=== PATIENT | male | born 1950 | race Caucasian/White ===

== ENCOUNTER 2019-04-28 09:38 | Inpatient (IN) ==
--- NOTE | 2019-04-14 16:40 | PAT Medication Instructions ---
Medication Instructions Date of Service April 14, 2019 Home Medications Medication Instructions Recorded oxycodone-acetaminophen 1 tab PO Q6H PRN #20 tab 06/25/18 Eliquis 5 mg PO BID ascorbic acid (vitamin C) [Vitamin C] 500 mg PO BID atorvastatin 40 mg PO HS levothyroxine 100 mcg PO QAM metformin 1,000 mg PO BID metoprolol succinate 0.5 tab PO BID omeprazole 10 mg PO DAILY PRN oxycodone-acetaminophen 1 tab PO Q6H PRN clopidogrel 75 mg PO QAM colestipol 1 g PO QPM furosemide 40 mg PO QAM ipratropium bromide 2 spray INTRANASAL TID magnesium 400 mg PO BID olopatadine 1 drp OPHTHALMIC (EYE) BID pantoprazole 20 mg PO QAM sacubitril-valsartan [Entresto] 1 tab PO BID spironolactone 25 mg PO QAM sulfamethoxazole-trimethoprim 1 tab PO Q12H PRN ASK your surgeon for instructions sulfamethoxazole-trimethoprim 1 tab PO Q12H PRN ASK your prescriber and surgeon Eliquis 5 mg PO BID clopidogrel 75 mg PO QAM STOP taking 48 hours before surgery colestipol 1 g PO QPM DO NOT take the morning of surgery ascorbic acid (vitamin C) [Vitamin C] 500 mg PO BID metformin 1,000 mg PO BID furosemide 40 mg PO QAM magnesium 400 mg PO BID sacubitril-valsartan [Entresto] 1 tab PO BID spironolactone 25 mg PO QAM Take morning of surgery With a small sip of water, OTHERWISE NOTHING TO EAT OR DRINK AFTER MIDNIGHT: levothyroxine 100 mcg PO QAM metoprolol succinate 0.5 tab PO BID omeprazole 10 mg PO DAILY PRN (if needed) oxycodone-acetaminophen 1 tab PO Q6H PRN (okay to take up to 4 hours prior to surgery if needed) ipratropium bromide 2 spray INTRANASAL TID olopatadine 1 drp OPHTHALMIC (EYE) BID pantoprazole 20 mg PO QAM Take evening before surgery ascorbic acid (vitamin C) [Vitamin C] 500 mg PO BID atorvastatin 40 mg PO HS metformin 1,000 mg PO BID metoprolol succinate 0.5 tab PO BID oxycodone-acetaminophen 1 tab PO Q6H PRN (if needed) ipratropium bromide 2 spray INTRANASAL TID magnesium 400 mg PO BID olopatadine 1 drp OPHTHALMIC (EYE) BID sacubitril-valsartan [Entresto] 1 tab PO BID Other Notes If you have any questions please call us at [phone] or [phone] or [phone] or [phone]
--- NOTE | 2019-04-15 14:03 | Anesthesiology Consultation ---
Date of Service April 15, 2019 Assessment & Plan (1) Encounter for pre-operative examination: - Eroded penile prosthesis: reason for upcoming procedure. Per surgeon "will need surgical correction." - Cardiology: 04/07/19: S/P PCI with LIZ to mid LAD (08/27/2018)- patent per 01/2019 repeat cardiac cath; per cardiac cath report. Patient subsequently had abnormal stress test (12/2018). Patient then had cardiac cath noting patent stent/graft/normal bioprosthetic AV. "cleared from a cardiac standpoint for the upcoming procedure." Eliquis to hold 2 days prior to surgery, Plavix to hold 7 days prior to surgery per cardiology. Per cardiology, do not need to start ASA while Eliquis/Plavix on hold. Discussed with hugo Becerra to proceed with given procedure as scheduled.* - Check BSG AM DOS Chart Review Chart Review: Acceptable Risk for Surgery (pending evaluation of clinical status AM DOS) and Patient seen in Pre Admission Testing Teaching & Discussion Pre-Anesthesia Teaching/Discussion Notes: Instructed NPO after midnight before surgery,except medications with 15 cc of water. Medication instructions provided according to the PAT guidelines. History Surgery Operation Date: 05/03/19 13:10 Proposed Procedures p Partial Cystectomy, - Ruiz Luu MD s Revision of Penile Prosthesis - Ruiz Luu MD Height/Weight Height: 5 ft 7 in Weight: 93 kg Allergies Allergy/AdvReac Type Severity Reaction Status Date / Time cefadroxil [From Duricef] Allergy Unknown lips Verified 04/19/19 14:13 swelling Medications Home Medications Medication Instructions Recorded Confirmed Last Taken Eliquis 5 mg PO BID 06/02/18 04/19/19 06/20/18 19:00 ascorbic acid (vitamin C) [Vitamin 500 mg PO BID 06/02/18 04/19/19 06/23/18 18:30 C] atorvastatin 40 mg PO HS 06/02/18 04/19/19 06/23/18 18:30 levothyroxine 100 mcg PO QAM 06/02/18 04/19/19 06/24/18 06:30 metformin 1,000 mg PO BID 06/02/18 04/19/19 06/23/18 20:00 metoprolol succinate 0.5 tab PO BID 06/02/18 04/19/19 06/24/18 07:00 omeprazole 10 mg PO DAILY PRN 06/02/18 04/19/19 06/23/18 18:30 oxycodone-acetaminophen 1 tab PO Q6H PRN #20 tab 06/25/18 04/19/19 Unknown clopidogrel 75 mg PO QAM 04/06/19 04/19/19 Unknown colestipol 1 g PO QPM 04/13/19 04/19/19 Unknown furosemide 40 mg PO QAM 04/13/19 04/19/19 Unknown ipratropium bromide 2 spray INTRANASAL TID 04/13/19 04/19/19 Unknown magnesium 400 mg PO BID 04/13/19 04/19/19 Unknown olopatadine 1 drp OPHTHALMIC (EYE) BID 04/13/19 04/19/19 Unknown pantoprazole 20 mg PO QAM 04/13/19 04/19/19 Unknown sacubitril-valsartan [Entresto] 1 tab PO BID 04/13/19 04/19/19 Unknown spironolactone 25 mg PO QAM 04/13/19 04/19/19 Unknown doxycycline monohydrate 100 mg 100 mg PO BID #60 cap 04/19/19 04/19/19 Unknown capsule tramadol 50 mg tablet 50 mg PO TID PRN #20 tab 04/20/19 Unknown Past Medical History Medical History Abdominal bloating per patient, reason on PPI Anemia hgb stable in the 9-10 range in setting of hematuria Atrial fibrillation paroxysmal s/p watchman ANDRE closure procedure (04/01/2019) CAD (coronary artery disease) PCI with LIZ to mid LAD (08/27/2018)- patent per 01/2019 repeat cardiac cath; per cardiac cath report, hx SVG to RCA graft (remotely placed per cardiology records; patient denies hx of bypass graft at PAT visit) Diabetes mellitus, type 2 Dry eye syndrome GERD (gastroesophageal reflux disease) rare with food triggers Hematuria History of aortic valve disease s/p AVR (2009) History of blood transfusion S/P colon resection History of skin cancer Hx of nasal polyp Hx of sleep apnea per patient, retesting showed patient no longer needs device Hypertension Hyponatremia mild, chronic in the low 130's Hypothyroid PAD (peripheral artery disease) S/P right SFA stent/left TPT (tibial peroneal) stent (2015) Exercise / Class Metabolic Activity III < 4 Walking/Shop/Light housework Past Family History Family History Father Family history of diabetes mellitus Brother Family history of diabetes mellitus Past Surgical History Surgical History H/O removal of cyst LEG History of appendectomy 01/14/15= OPEN APPE= GRADE VIEW 3, LUU 4 ETT 7.5 AT [facility] History of cardiac radiofrequency ablation 09/2018 History of cardioversion 08/2018 History of colon resection 09/18 PERFORATION (WITH FOREIGN BODY PER RECORDS OBTAINED) History of colostomy reversal History of penile implant History of procedure for peripheral vascular disease S/P RIGHT SFA STENT/LEFT TPT (TIBIAL PERONEAL) STENT (2015) Hx of aortic valve replacement 2009 Hx of cardiac cath = no stents; 08/27/18 LIZ to mid LAD; repeat cardiac cath 01/2019 with patent stent, 04/01/2019 had watchman procedure Hx of colonoscopy Hx of colostomy SUBSEQUENT REVERSAL Hx of endoscopy Past Anesthesia History No Hx of Anesthesia Complications and No Family Hx of Anesthesia Complications History of PONV No Hx of PONV and Hx of Motion Sickness (rare (boat rides)) Social History Smoking Status: Former smoker tobacco type: smokeless tobacco Do You Dip or Chew Tobacco: No Smoking End Date: QUIT 2011 Hx Alcohol Use: No Alcohol Intake Frequency Comment: STOPPED 2011 Hx Substance Use: No substance use type: does not use Review of Systems Rare reflux. Patient denies chest pain, shortness of breath, cough, wheezing, palpitations. Physical Exam Vital Signs VITALS BP 105/68 P 81 TEMP 98.2 SP02 100%RA RESP 20 PHYSICAL Full neck and c-spine range of motion. Full TMJ range of motion. TMD 3.5 finger breaths Mallampati Score 3 Dentition: missing molar Lungs: clear throughout to auscultation Cardiac: regular rate, irregular rhythm, no murmurs noted Spine: normal Carotid arteries: negative bruit Extremities: no edema Testing Laboratory Results 04/15/19 14:30 04/15/19 14:30 Urine Color Perrin 04/15/19 Unknown Urine Appearance Cloudy (Clear) A 04/15/19 Unknown Urine pH 5.5 (4.5-7.5) 04/15/19 Unknown Ur Specific [place] 1.021 (1.000-1.030) 04/15/19 Unknown Urine Protein 2+ (Negative) H 04/15/19 Unknown Urine Glucose (UA) Negative (Negative) 04/15/19 Unknown Urine Ketones Negative (Negative) 04/15/19 Unknown Urine Nitrite Negative (Negative) 04/15/19 Unknown Ur Leukocyte Esterase 3+ (Negative) H 04/15/19 Unknown Urine WBC (Auto) >30 /hpf (0-5) H 04/15/19 Unknown Urine RBC (Auto) >30 /hpf (0-4) H 04/15/19 Unknown U Hyaline Cast (Auto) 10-30 /lpf (0-5) H 04/15/19 Unknown U Epithel Cells (Auto) 5-10 /lpf (0-5) H 04/15/19 Unknown Urine Bacteria (Auto) Negative (Negative) 04/15/19 Unknown Blood Type B Positive 04/15/19 14:30 Antibody Screen NEGATIVE 04/15/19 14:30 04/15/19 Unknown Urine Culture - Final Urine,Clean Catch No growth - less than 1,000 colonies/mL. *Elevated creatinine from baseline in setting of inflammatory bladder changes/mass effect from penile implant/eroded penile prosthesis (reason for upcoming procedure). Surgeon made aware of elevated creatinine as well as WBC.* Electrocardiogram Date: 02/11/19 A. fib at 99bpm. NS STA/TWA. Chest X-Ray Date: 04/15/19 Prior median sternotomy. Lungs are clear. Echocardiogram Date: 02/04/19 LVEF 40-45%. Lipomatous atrial septal hypertrophy. Bioprosthetic valve in aortic position (valve function acceptable). Mild MR/TR. No thrombus in the ANDRE. Stress Test Date: 12/15/18 Type: nuclear LVEF 43%. Non-diagnostic stress EKG. 49% MPHR. Abnormal SPECT myocardial perfusion study with moderate area of moderate anterolateral ischemia.* Mild lateral HK. Cardiac Catheterization Date: 02/04/19 Cardiac cath: 02/04/19: Chronic total occlusion of RCA. Patent vein graft to RPDA. Patent proximal LAD artery stent. Bioprosthetic AV with normal function/no gradient. Mild ischemic cardiomyopathy. Cardiac cath: 08/27/18: Two vessel CAD of the LAD and RCA. Patent SVG to RCA. PCI with LIZ of the mid LAD. PCI with LIZ of the mid LAD. Other Testing Chest CT: 09/2018: Ascending aorta ectatic measuring 4.4cm. Extensive coronary artery calcification. Mild b/l hilar adenopathy or mediastinal adenopathy of uncertain significance. Suggestive bronchitis. Cholelithiasis. CT abdomen/pelvix: 04/15/19: Inflammatory changes along the anterior bladder and extending into the right inguinal canal. The penile implant has an asymmetric appearance with a reservoir exerting mass effect on the urinary bladder and asymmetry of the inguinal components. The right inguinal component does not appear to be in continuity with the reservoir and does not extend in the similar fashion into the inguinal canal as on the left. Correlate with the expected appearance. Surrounding inflammatory changes could represent exuberant granulation tissue, however, this could represent cystitis or potentially infection or reactive change related to the implant. Punctate right renal calculus. No hydronephrosis. No solid renal or urothelial mass. Cholelithiasis.
[2019-04-15 14:59] LABS: Basophils # (auto) 0.03 K/uL (0-0.2); Basophils % (auto) 0.2 %; Eosinophils # (auto) 0.09 K/uL (0-0.5); Eosinophils % (auto) 0.5 %; Hematocrit (blood only) 31.5 % (42-52); Hemoglobin 9.9 g/dL (14.0-18.0); Immature Granulocytes # (auto) 0.04 K/uL (0.00-0.02); Immature Granulocytes % (auto) 0.2 %; Lymphocytes # (auto) 1.63 K/uL (1.2-3.4); Lymphocytes % (auto) 9.7 %; Mean Corpuscular Hemoglobin 24.5 pg (25-34); Mean Corpuscular Hgb Conc 31.4 g/dL (32-36); Mean Platelet Volume 9.4 fL (7.4-10.4); Monocytes % (auto) 10.1 %; Neutrophils # (auto) 13.39 K/uL (1.4-6.5); Neutrophils % (auto) 79.3 %; Platelet Count 323 K/uL (130-400); RDW Coefficient of Variation 16.7 % (11.5-14.5); Red Blood Count 4.04 M/uL (4.7-6.1); White Blood Count 16.88 K/uL (4.8-10.8)
[2019-04-15 15:08] LABS: Appearance Urine Cloudy (Clear); Bacteria Urine Automated Negative (Negative); Bilirubin Urine Negative (Negative); Blood Urine 3+ (Negative); Color Urine Orange; Glucose Urine UA Negative (Negative); Ketones Urine Negative (Negative); Leukocyte Esterase Urine 3+ (Negative); Nitrite Urine Negative (Negative); Protein Urine 2+ (Negative); Specific Gravity Urine 1.021 (1.000-1.030); Urobilinogen Urine Negative (Negative); WBC Urine Automated >30 /hpf (0-5); pH Urine 5.5 (4.5-7.5)
[2019-04-15 15:10] LABS: BUN Creatinine Ratio 20.2 (10-20); Calcium 8.7 mg/dl (8.5-10.1); Creatinine Clr Calc Pharmacy 42.7 ml/min; Est GFR (Non-African American) 37.1; Potassium 4.4 mmol/L (3.5-5.1)
--- NOTE | 2019-04-15 15:11 | XRay Report ---
XR chest Pre-admission PA/Lat CLINICAL HISTORY: PAT preoperative COMPARISON STUDY: 06/08/2018 FINDINGS: Prior median sternotomy. Lungs are clear. Diaphragms are smooth. IMPRESSION: No acute process. The above report was generated using voice recognition software. It may contain grammatical, syntax or spelling errors. Electronically signed by: Severiano Manley M.D. 04/15/2019 3:10 PM
[2019-04-15 15:24] LABS: RBC Urine Automated >30 /hpf (0-4)
[~2019-04-28 09:38] MED LIST: CEFAZOLIN 3000MG 65 ML IV SCH; LR 15ML/HR IV SCH; VANCOMYCIN HCL 1,250 MG in SODIUM CHLORIDE 0.9% 250 ML IV SCH
[2019-04-28] MEDS ORDERED: MIDAZOLAM HCL 1 MG/ML 2ML VIAL ONE (10:13)
[2019-04-28] MEDS ORDERED: fentaNYL citrate 100 MCG/2 ML VIAL ONE ×2 (10:13→15:05)
--- NOTE | 2019-04-28 10:22 | History & Physical Bridge Note ---
Date of Service April 28, 2019 History & Physical Bridge Note I have examined the patient, reviewed the History & Physical and in the interval since the performance of the History & Physical I have noted the following changes of clinical significance: no changes noted, last office note reviewed, surgery moved up due to apparent worsening infection - revision likely to consist of explantation as noted with patient. Understands risk of corporeal scarring and compromise of ability to replace, but priority is resolution of infection and improved health to allow for cardiac care.
[2019-04-28] MEDS ORDERED: BACITRACIN INJ 50,000 UNIT VIAL ONE ×2 (11:29→14:10)
[2019-04-28] MEDS ORDERED: LIDOCAINE HCL 1% 20 ML VIAL ONE (11:29)
[2019-04-28] MEDS ORDERED: ONDANSETRON INJ 2 MG/ML 2 ML VIAL IV PRN ×2 (12:01→15:58)
[2019-04-28] MEDS ORDERED: fentaNYL citrate 100 MCG/2 ML VIAL IV PRN (12:01)
[2019-04-28] MEDS ORDERED: ATROPINE SULFATE 0.1 MG/ML 10ML SYR IV PRN (12:01)
[2019-04-28] MEDS ORDERED: METOCLOPRAMIDE HCL INJ 5 MG/ML 2 ML VIAL IV PRN (12:01)
[2019-04-28] MEDS ORDERED: PROMETHAZINE HCL 12.5 MG in SODIUM CHLORIDE 0.9% 50 ML IV PRN (12:01)
[2019-04-28] MEDS ORDERED: ePHEDrine sulfate 50 MG/ML AMP IV PRN (12:01)
[2019-04-28] MEDS ORDERED: ACETAMINOPHEN 1000 MG/100 ML IV IV ONE (12:13)
[2019-04-28] MEDS ORDERED: NEOSTIGMINE METHYLSULFATE 5 MG/5 ML SYR ONE (12:38)
[2019-04-28] MEDS ORDERED: HYDROmorphone INJ 2 MG/ML SYR/VIAL ONE (12:38)
[2019-04-28] MEDS ORDERED: GLYCOPYRROLATE 0.2 MG/ML VIAL ONE (12:38)
[2019-04-28] MEDS ORDERED: PROPOFOL IV EMULSION 10 MG/ML 20 ML VIAL IV ONE (12:38)
[2019-04-28] MEDS ORDERED: ROCURONIUM BROMIDE 10 MG/ML 5 ML VIAL ONE (12:38)
[2019-04-28] MEDS ORDERED: ONDANSETRON INJ 2 MG/ML 2 ML VIAL ONE (12:38)
[2019-04-28] MEDS ORDERED: LIDOCAINE HCL 2% 2 ML VIAL/AMP(20MG/ML) INFIL ONE (12:38)
[2019-04-28] MEDS ORDERED: PHENYLEPHRINE 100MCG/ML 5ML SYR ONE (12:38)
--- NOTE | 2019-04-28 15:09 | Operative Report ---
Post Operative Report Pre & Post Diagnosis Operation Date: 04/28/19 11:10 Pre-Op Diagnosis: Eroded Penile Prosthesis Post-Op Diagnosis: Eroded Penile Prosthesis Procedure Operation Date: 04/28/19 11:10 Actual Procedures p Bladder Exploration and Removal of Infected Penile Prosthesis(Not Applicable) - Ruiz Luu MD Surgeon Ruiz Luu MD Sourcing Manager Arianna Gibson Estimated Blood Loss 40 Findings Consistent with Post-Op Diagnosis Specimens Culture x 2, prosthesis for culture and path Description of Procedure See above I attest to the content of the Intraoperative Record and any orders documented therein. Any exceptions are noted below.
[2019-04-28] MEDS: fentaNYL citrate 100 MCG/2 ML VIAL IV PRN ×4 (15:20→15:35)
[2019-04-28] MEDS: HYDROmorphone INJ 2 MG/ML SYR/VIAL IV PRN ×3 (15:40→15:50)
[2019-04-28 15:41] LABS: Basophils # (auto) 0.01 K/uL (0-0.2); Basophils % (auto) 0.1 %; Eosinophils % (auto) 0.7 %; Hematocrit (blood only) 30.9 % (42-52); Hemoglobin 9.6 g/dL (14.0-18.0); Immature Granulocytes # (auto) 0.05 K/uL (0.00-0.02); Immature Granulocytes % (auto) 0.4 %; Lymphocytes # (auto) 1.53 K/uL (1.2-3.4); Lymphocytes % (auto) 11.4 %; Mean Corpuscular Hemoglobin 24.3 pg (25-34); Mean Corpuscular Volume 78.2 fL (80-100); Mean Platelet Volume 8.3 fL (7.4-10.4); Monocytes # (auto) 0.79 K/uL (0.11-0.59); Monocytes % (auto) 5.9 %; Neutrophils # (auto) 10.93 K/uL (1.4-6.5); Neutrophils % (auto) 81.5 %; Platelet Count 413 K/uL (130-400); RDW Coefficient of Variation 16.3 % (11.5-14.5); RDW Standard Deviation 47.2 fL (36.4-46.3); Red Blood Count 3.95 M/uL (4.7-6.1); White Blood Count 13.41 K/uL (4.8-10.8)
[2019-04-28 15:43] LABS: Mean Corpuscular Hgb Conc 31.1 g/dL (32-36)
[2019-04-28 15:57] LABS: BUN Creatinine Ratio 18.3 (10-20); Est GFR (African American) 73.3; Est GFR (Non-African American) 63.3; Potassium 5.1 mmol/L (3.5-5.1)
[2019-04-28] MEDS ORDERED: SODIUM CHLORIDE 0.9% 1000ML 1,000 ML IV SCH (15:58)
[2019-04-28] MEDS ORDERED: HYDROmorphone INJ 1 MG/ML SYRINGE IV PRN ×2 (15:58)
[2019-04-28] MEDS ORDERED: PHARMACY GLYCEMIC MGMT CONSULT PRN (15:58)
[2019-04-28] MEDS ORDERED: HYDROmorphone INJ 0.5 MG/0.5 ML SYR IV PRN (15:58)
[2019-04-28] MEDS ORDERED: OXYCODONE HCL IR 5 MG TAB (IMMEDIATE RELEASE) PO PRN ×2 (15:58)
[2019-04-28] MEDS ORDERED: HYDROmorphone HCL 0.5MG/ML 50 ML CASSETTE IV PRN (15:58)
[2019-04-28] MEDS ORDERED: VANCOMYCIN CONSULT ACTIVE PRN (15:58)
[2019-04-28] MEDS ORDERED: NALOXONE HCL 0.4 MG/1 ML VIAL/CARP IV PRN (15:58)
--- NOTE | 2019-04-28 16:07 | Anesthesiology Progress Note ---
Date of Service April 28, 2019 Anesthesia Post Procedure Vital Signs Vital Signs: Temp Pulse Pulse Resp BP BP Pulse Ox 04/28/19 15:11 36.7 C 77 16 141/87 H 100 04/28/19 10:18 37.1 C 85 18 139/84 98 Pain Intensity Groin: Pain Intensity: 3 Transfer of Care Handoff Completed per policy Notes Mental Status: alert / awake / arousable Patient Amnestic to Procedure: Yes Nausea / Vomiting: adequately controlled Pain: adequately controlled Airway Patency, RR, SpO2: stable & adequate BP & HR: stable & adequate Hydration State: stable & adequate Anesthetic Complications: no major complications apparent and Pt Satisfied with anesthetic care
[2019-04-28] MEDS: LACTATED RINGER'S 1,000 ML IV SCH ×2 (19:01→23:11)
[2019-04-28] MEDS: INSULIN ASPART 100 UNITS/ML 3 ML PEN SC SCH ×2 (19:51→21:50)
[2019-04-28] MEDS: SACUBITRIL-VALSARTAN 49/51 MG TAB PO SCH (20:11)
[2019-04-28] MEDS: METOPROLOL SUCC 25MG EXT REL TAB PO SCH (20:11)
[2019-04-28] MEDS: MAGNESIUM OXIDE 400 MG TAB PO SCH (20:11)
[2019-04-28] MEDS: ASCORBIC ACID 500 MG TAB PO SCH (20:11)
[2019-04-28] MEDS: DOCUSATE SODIUM 100 MG CAP PO SCH (20:11)
[2019-04-28] MEDS: HEPARIN SOD 5,000 UNIT/0.5 ML VIAL SQ SCH (20:12)
[2019-04-28] MEDS: IPRATROPIUM BROMIDE NASAL SPRAY 0.06% 15ML NAE SCH (20:12)
[2019-04-28] MEDS ORDERED: ATORVASTATIN 40 MG TAB PO SCH (21:00)
[2019-04-28] MEDS ORDERED: VANCOMYCIN HCL 1,500 MG in SODIUM CHLORIDE 0.9% 500 ML IV SCH (22:00)
[2019-04-28] MEDS ORDERED: COLESTIPOL HCL 1 GM TAB PO SCH (22:00)
[2019-04-29 06:24] LABS: Basophils # (auto) 0.01 K/uL (0-0.2); Basophils % (auto) 0.1 %; Eosinophils # (auto) 0.14 K/uL (0-0.5); Eosinophils % (auto) 1.7 %; Hematocrit (blood only) 28.5 % (42-52); Hemoglobin 8.8 g/dL (14.0-18.0); Immature Granulocytes # (auto) 0.03 K/uL (0.00-0.02); Immature Granulocytes % (auto) 0.4 %; Lymphocytes # (auto) 1.53 K/uL (1.2-3.4); Lymphocytes % (auto) 18.5 %; Mean Corpuscular Hemoglobin 24.4 pg (25-34); Mean Corpuscular Hgb Conc 30.9 g/dL (32-36); Mean Corpuscular Volume 78.9 fL (80-100); Mean Platelet Volume 8.6 fL (7.4-10.4); Monocytes # (auto) 0.84 K/uL (0.11-0.59); Monocytes % (auto) 10.2 %; Neutrophils # (auto) 5.72 K/uL (1.4-6.5); Neutrophils % (auto) 69.1 %; Platelet Count 391 K/uL (130-400); RDW Coefficient of Variation 16.4 % (11.5-14.5); RDW Standard Deviation 47.7 fL (36.4-46.3); Red Blood Count 3.61 M/uL (4.7-6.1); White Blood Count 8.27 K/uL (4.8-10.8)
[2019-04-29] MEDS ORDERED: LEVOTHYROXINE SODIUM 100 MCG TABLET PO SCH (06:30)
[2019-04-29 06:42] LABS: BUN Creatinine Ratio 15.4 (10-20); Calcium 8.6 mg/dl (8.5-10.1); Creatinine Clr Calc Pharmacy 81.8 ml/min; Est GFR (African American) 95.1; Potassium 4.3 mmol/L (3.5-5.1)
--- NOTE | 2019-04-29 07:52 | Anesthesiology Progress Note ---
Date of Service April 29, 2019 Anesthesia Post Procedure Vital Signs Vital Signs: Temp Pulse Pulse Pulse Pulse Resp BP 04/29/19 03:53 36.7 C 74 18 04/28/19 23:00 36.7 C 76 18 04/28/19 20:09 82 04/28/19 19:45 36.6 C 83 16 04/28/19 18:45 36.6 C 61 16 04/28/19 17:45 36.6 C 82 16 04/28/19 17:15 36.7 C 85 16 04/28/19 16:47 36.7 C 83 12 04/28/19 16:31 83 16 04/28/19 16:30 36.5 C 76 14 133/79 04/28/19 16:26 78 14 04/28/19 16:25 79 14 129/84 04/28/19 16:21 77 14 04/28/19 16:20 88 14 125/71 04/28/19 16:16 83 14 04/28/19 16:15 72 14 127/73 04/28/19 16:11 86 14 128/73 04/28/19 16:10 83 12 04/28/19 16:06 75 14 04/28/19 16:05 75 22 129/69 04/28/19 16:01 12 140/76 04/28/19 16:00 15 04/28/19 15:56 86 16 139/76 04/28/19 15:55 78 17 04/28/19 15:51 80 14 04/28/19 15:50 86 20 137/71 04/28/19 15:46 74 26 H 04/28/19 15:45 72 14 135/75 04/28/19 15:41 81 14 04/28/19 15:40 84 14 138/79 04/28/19 15:36 14 139/74 04/28/19 15:35 86 14 04/28/19 15:34 73 14 151/98 H 04/28/19 15:30 81 14 04/28/19 15:26 88 14 04/28/19 15:25 75 15 153/77 H 04/28/19 15:21 71 22 04/28/19 15:20 76 19 156/88 H 04/28/19 15:16 82 20 04/28/19 15:15 69 18 139/92 04/28/19 15:12 83 14 04/28/19 15:11 36.7 C 74 77 14 141/87 H 04/28/19 10:18 37.1 C 85 18 BP BP Pulse Ox 04/29/19 03:53 95/62 L 04/28/19 23:00 111/56 L 04/28/19 20:09 129/77 04/28/19 19:45 107/72 100 04/28/19 18:45 105/65 04/28/19 17:45 109/68 100 04/28/19 17:15 121/76 04/28/19 16:47 111/71 04/28/19 16:31 04/28/19 16:30 94 04/28/19 16:26 04/28/19 16:25 04/28/19 16:21 04/28/19 16:20 04/28/19 16:16 04/28/19 16:15 04/28/19 16:11 04/28/19 16:10 04/28/19 16:06 04/28/19 16:05 04/28/19 16:01 04/28/19 16:00 04/28/19 15:56 04/28/19 15:55 04/28/19 15:51 04/28/19 15:50 04/28/19 15:46 04/28/19 15:45 04/28/19 15:41 04/28/19 15:40 04/28/19 15:36 96 04/28/19 15:35 04/28/19 15:34 04/28/19 15:30 04/28/19 15:26 04/28/19 15:25 04/28/19 15:21 04/28/19 15:20 04/28/19 15:16 04/28/19 15:15 98 04/28/19 15:12 04/28/19 15:11 141/87 H 04/28/19 10:18 139/84 98 Pain Intensity Groin: Pain Intensity: 4 Notes Mental Status: alert / awake / arousable and participated in evaluation Nausea / Vomiting: adequately controlled Pain: adequately controlled Airway Patency, RR, SpO2: stable & adequate BP & HR: stable & adequate Hydration State: stable & adequate
[2019-04-29 08:03] LABS: Estimated Average Glucose 140 mg/dl; Hemoglobin A1C 6.5 % (4.5-5.6)
[2019-04-29] MEDS ORDERED: OXYCODONE/ACETAMINOPHEN 5mg/325mg TAB PO PRN (08:34)
[2019-04-29] MEDS ORDERED: OXYCODONE/ACETAMINOPHEN 10-325 TAB PO PRN (08:36)
[2019-04-29] MEDS ORDERED: HYDROmorphone INJ 0.5 MG/0.5 ML SYR IV PRN (08:36)
--- NOTE | 2019-04-29 08:37 | Urology Progress Note ---
Date of Service April 29, 2019 Assessment & Plan (1) Complication of implanted penile prosthesis: A/P 68 yo male POD#1 s/p penile prosthesis explantation for infection. Patient doing well. Will advance diet and activity. OK to DC home later, continue doxycycline. Will try to have culture checked over weekend, change agents as needed. Limitations reviewed, f/u planned - will need cystogram prior to TOV seen extensive bladder work. DC home today or tomorrow, KEN out today, will keep scrotal drain until next week. Subjective 68 yo male s/p difficult extirpation of infected penile prosthesis, POD#1. He is in good spirits as always, inquiring on discharge today. OOB standing today, no ambulation, taking clears. He notes some drainage around his catheter with urge to void, + spasms. Acceptable drain outputs, labs noted. No other c/o, wants diet. Review of Systems Constitutional: no fever and no chills Eyes: no diplopia Ear, Nose, Mouth, Throat: no ear trauma Respiratory: no hemoptysis Cardiovascular: no chest pain Integumentary: no acne and no boil Neurologic: no paralysis Psychiatric: no hopelessness Allergy / Immunological: no tongue swelling Physical Exam Constitutional: well developed and well nourished; no acute distress Eyes: eyes not dysmorphic ENMT: Ears: no external ear abnormality Neck: trachea midline; no anterior neck swelling Respiratory: no respiratory distress and does not use accessory muscles Cardiovascular: Vessels: radial pulses present Gastrointestinal (Abdomen): Inspection/Auscultation: abdomen not distended Percussion/Palpation: abdomen soft; abdomen nontender inc c/d/i Musculoskeletal: Head/Neck/Chest: normocephalic and neck supple Skin: normal turgor Neurologic: awake; not obtunded Psychiatric: Orientation: oriented x 3 Genitourinary: uncirc phallus, inc c/d/i, no worrisome drainage, evidence of infection or skin breakdown. Lymphatic: no lymphadenopathy Results & Data Vital Signs (Past 12 Hours) Vital Signs Temp Pulse Pulse Resp BP BP Pulse Ox 04/29/19 07:25 36.8 C 76 18 100/60 96 04/29/19 03:53 36.7 C 74 18 95/62 L 100 04/28/19 23:00 36.7 C 76 18 111/56 L 100 Laboratory Results Laboratory Results - last 48 hr 04/28/19 04/28/19 04/28/19 10:35 15:12 15:28 WBC 13.41 H RBC 3.95 L Hgb 9.6 L Hct 30.9 L MCV 78.2 L MCH 24.3 L MCHC 31.1 L RDW Std Deviation 47.2 H RDW Coeff of Wilfredo 16.3 H Plt Count 413 H MPV 8.3 Immature Gran % (Auto) 0.4 Neut % (Auto) 81.5 Lymph % (Auto) 11.4 [place] % (Auto) 5.9 Eos % (Auto) 0.7 Baso % (Auto) 0.1 Immature Gran # (Auto) 0.05 H Neut # (Auto) 10.93 H Lymph # (Auto) 1.53 [place] # (Auto) 0.79 H Eos # (Auto) 0.10 Baso # (Auto) 0.01 Sodium Potassium Chloride Carbon Dioxide Anion Gap BUN Creatinine Est Cr Clr Drug Dosing Est GFR ( Amer) Est GFR (Non-Af Amer) BUN/Creatinine Ratio Glucose POC Glucose 128 H 142 H Estimat Average Glucose Hemoglobin A1c Calcium 04/28/19 04/28/19 04/28/19 15:28 17:07 21:07 WBC RBC Hgb Hct MCV MCH MCHC RDW Std Deviation RDW Coeff of Wilfredo Plt Count MPV Immature Gran % (Auto) Neut % (Auto) Lymph % (Auto) [place] % (Auto) Eos % (Auto) Baso % (Auto) Immature Gran # (Auto) Neut # (Auto) Lymph # (Auto) [place] # (Auto) Eos # (Auto) Baso # (Auto) Sodium 134 L Potassium 5.1 Chloride 101 Carbon Dioxide 26 Anion Gap 6.0 BUN 22 H Creatinine 1.19 Est Cr Clr Drug Dosing 66.0 Est GFR ( Amer) 73.3 Est GFR (Non-Af Amer) 63.3 BUN/Creatinine Ratio 18.3 Glucose 138 H POC Glucose 137 H 171 H Estimat Average Glucose Hemoglobin A1c Calcium 9.0 04/29/19 04/29/19 04/29/19 05:34 05:34 05:34 WBC 8.27 RBC 3.61 L Hgb 8.8 L Hct 28.5 L MCV 78.9 L MCH 24.4 L MCHC 30.9 L RDW Std Deviation 47.7 H RDW Coeff of Wilfredo 16.4 H Plt Count 391 MPV 8.6 Immature Gran % (Auto) 0.4 Neut % (Auto) 69.1 Lymph % (Auto) 18.5 [place] % (Auto) 10.2 Eos % (Auto) 1.7 Baso % (Auto) 0.1 Immature Gran # (Auto) 0.03 H Neut # (Auto) 5.72 Lymph # (Auto) 1.53 [place] # (Auto) 0.84 H Eos # (Auto) 0.14 Baso # (Auto) 0.01 Sodium 137 Potassium 4.3 D Chloride 103 Carbon Dioxide 28 Anion Gap 6.0 BUN 15 Creatinine 0.96 Est Cr Clr Drug Dosing 81.8 Est GFR ( Amer) 95.1 Est GFR (Non-Af Amer) 82.0 BUN/Creatinine Ratio 15.4 Glucose 97 POC Glucose Estimat Average Glucose 140 Hemoglobin A1c 6.5 H Calcium 8.6 PG Care Time/CCT Total # of Minutes Spent Total Time Spent with Patient: Total time spent is greater than 50% in coordination of care (as documented) at patient's floor/unit and/or counseling patient:
[2019-04-29] MEDS ORDERED: HYDROmorphone INJ 1 MG/ML SYRINGE IV PRN (08:38)
[2019-04-29] MEDS ORDERED: GLUCOSE 10 TABS/TUBE PO PRN (09:00)
[2019-04-29] MEDS ORDERED: GLUCOSE 40% GEL 15 GM TUBE PO PRN (09:00)
[2019-04-29] MEDS ORDERED: ASPIRIN 81 MG ECTAB PO SCH (09:00)
[2019-04-29] MEDS ORDERED: PANTOprazole 40 MG TAB PO SCH (09:00)
[2019-04-29] MEDS ORDERED: OXYBUTYNIN CHLORIDE 5 MG TAB PO SCH (09:00)
[2019-04-29] MEDS ORDERED: SPIRONOLACTONE 25 MG TAB PO SCH (09:00)
[2019-04-29] MEDS ORDERED: GLUCAGON FOR INJ 1 MG VIAL IM PRN (09:00)
[2019-04-29] MEDS ORDERED: CARBOHYDRATES FOR HYPOGLYCEMIA PO PRN (09:00)
[2019-04-29] MEDS ORDERED: DEXTROSE 50% 50 ML SYRINGE IV PRN (09:00)
[2019-04-29] MEDS: IPRATROPIUM BROMIDE NASAL SPRAY 0.06% 15ML NAE SCH ×2 (09:02→13:15)
[2019-04-29] MEDS: DOCUSATE SODIUM 100 MG CAP PO SCH (09:03)
[2019-04-29] MEDS: SACUBITRIL-VALSARTAN 49/51 MG TAB PO SCH (09:04)
[2019-04-29] MEDS: MAGNESIUM OXIDE 400 MG TAB PO SCH (09:05)
[2019-04-29] MEDS: HEPARIN SOD 5,000 UNIT/0.5 ML VIAL SQ SCH (09:07)
[2019-04-29] MEDS: METOPROLOL SUCC 25MG EXT REL TAB PO SCH (09:08)
[2019-04-29] MEDS: ASCORBIC ACID 500 MG TAB PO SCH (09:08)
--- NOTE | 2019-04-29 09:58 | Pharmacy Report ---
Glycemic Control Consultation - Date of Service April 29, 2019 - Scope Scope: Glycemic Pharmacist consulted by Shauna Martin Cathy on 04/28 for glycemic control and to write orders per [facility] inpatient glycemic control protocol - Objective Weight: 91.8 kg Accuchecks BSG (last 24hrs): 04/28/19 04/28/19 04/28/19 10:35 15:12 15:28 Glucose 138 H POC Glucose 128 H 142 H 04/28/19 04/28/19 04/29/19 17:07 21:07 05:34 Glucose 97 POC Glucose 137 H 171 H Laboratory Data (last 24hrs): 04/28/19 04/29/19 15:28 05:34 Potassium 5.1 4.3 D Carbon Dioxide 26 28 Anion Gap 6.0 6.0 Creatinine 1.19 0.96 Est Cr Clr Drug Dosing 66.0 81.8 HbA1c: Hemoglobin A1c 6.5 % (4.5-5.6) H 04/29/19 05:34 - Recent Pertinent Medications Outpatient Anti-diabetic Regimen: * Metformin 1000 mg PO BID * A1c = 6.5 % (04/29/19) Risk Factors for Insulin Resistance: * Infection: perioperative vancomycin * Recent Surgery: removal of infected penile prosthesis (04/28) * Diet: type 2 DM (advanced from clear liquid) - Assessment & Plan Assessment & Plan: ASSESSMENT: * Patient POD#1 s/p urologic procedure for infection of implanted penile prosthesis * Patient required minimal insulin yesterday * Well-controlled diabetes with home metformin 1000 mg PO BID PLAN FOR INPATIENT GLYCEMIC CONTROL: * Holding outpatient oral diabetes medications * Bolus insulin * NovoLog per scale ACHS or Q6hrs while NPO * Goal Range: Low 110 mg/dL - High 140 mg/dL * Correction Factor: 30 mg/dL/unit * Nutritional / Prandial insulin per carb ratio of 1 unit per 10 grams CHO consumed * Patient received 3 units of bolus insulin yesterday PLAN FOR DISCHARGE: * Discharge planned for today or tomorrow * Well-controlled diabetes (HbA1c: 6.5%) * Continue home metformin 1000 mg PO BID * Please note that the plan above was derived based on current level of insulin resistance and hospital stress. These recommendations are appropriate for inpatient admission only. Plan of care upon discharge will need to be reassessed to avoid potential outpatient hypo/hyperglycemia. Thank you.
[2019-04-29] MEDS: INSULIN ASPART 100 UNITS/ML 3 ML PEN SC SCH ×2 (10:25→13:13)
[2019-04-29] MEDS ORDERED: bisacodyL 10 MG SUPP PR PRN (11:19)
--- NOTE | 2019-04-29 11:31 | Urology Progress Note ---
Date of Service April 29, 2019 Assessment & Plan (1) Complication of implanted penile prosthesis: 68 yo male s/p difficult extirpation of infected penile prosthesis, POD#1. Pt progressing very well. Expected clinical course reviewed in detail. Pt feels like he needs to have BM, unable. Will give dulcolax now to prevent straining. Ordered abdominal binder for extra support. Plan to discharge home after lunch as long as he continues to tolerate. ~3pm with his 's availability as they live in [place]. Please pull abdominal KEN prior to discharge. Keep scrotal drain and xiong catheter. All questions answered. Pt agreeable to plan of care. Subjective 68 yo male s/p difficult extirpation of infected penile prosthesis, POD#1. Rechecked for progress update. He is doing well, ambulating independently. Tolerated regular diet for breakfast. Denies n/v. He is feeling somewhat constipated. Abd soft, but slightly distended as expected. Urine draining bloody but thin, no clots. Minimal output from both drains. Review of Systems Review of Systems: All systems reviewed & are unremarkable except as noted in HPI & below Results & Data Vital Signs (Past 12 Hours) Vital Signs Temp Pulse Pulse Resp BP BP Pulse Ox 04/29/19 07:25 36.8 C 76 18 100/60 96 04/29/19 03:53 36.7 C 74 18 95/62 L 100
--- NOTE | 2019-04-29 23:45 | Operative Report ---
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 PROCEDURE: Open bladder exploration with explantation of infected penile prosthesis. SURGEON: Ruiz Luu M.D. ENGRAVER HAND [employer] METALS: Elbert Costello M.D. and ANDRE Magana ANESTHESIA: General anesthesia with endotracheal intubation plus local at incision after completion. ESTIMATED BLOOD LOSS: 40 mL. DRAINS LEFT IN PLACE: Include a #10 KEN drain in the left lower quadrant, scrotal Cr drain to bulb suction and an 18-Urdu silicone Langford catheter to gravity drainage with 10 mL of sterile water in the balloon. SPECIMENS SENT TO PATHOLOGY: Deep tissue cultures x2, one taken from the abdominal reservoir site, one taken from the scrotal pump site. Portions of the penile prosthesis were sent for foreign body culture and portions for pathologic acknowledgement. FINDINGS: Copious intraabdominal inflammation, mostly separate from the site of the prosthesis. Small amount of purulence around certain portions of the prosthesis. Copious scrotal inflammation seen as well. Entirety of the device removed intact without other complications. Watertight bladder closure after completion of the case. BRIEF HISTORY: Mr. Otero is a pleasant 68-year-old male who I have previously brought to the operating room for exchange of a penile prosthesis, which had been malfunctioning in June 2018. This functioned relatively low for some time, but maybe year, the patient began developing urinary difficulties and difficulties with inflation of his prosthesis. Office cystoscopy demonstrated erosion of the balloon into the anterior bladder. This was confirmed on CT scan imaging. Shortly prior to his planned surgery date, the patient developed induration and swelling over the pump portion of his prosthesis within the scrotum. This was felt to be consistent with infection tracking along the course of the prosthesis. After discussion of risks and benefits of various forms of management, specifically exchange of the patient's penile prosthesis for a malleable prosthesis versus complete explantation, patient decided upon the latter to maximize his odds of resolution of infection to allow for care for his ongoing cardiac issues in the form of AFib pending intervention. Please see H&P and outpatient notes for further details. The patient has been covered with doxycycline due to his renal function for outpatient coverage with a fair clinical response. He has been afebrile without other worsening of his symptoms in the meanwhile. He is being brought to the operating room semielectively for removal of his penile prosthesis as noted. DESCRIPTION OF PROCEDURE: The patient was properly identified and brought into the operative suite after identification of appropriate consent on the chart. General anesthesia with endotracheal intubation was initiated and the patient was prepped and draped in standard fashion for this procedure. real time trader-out procedure was followed. The patient was prepped from the umbilicus down to the level of the knees in a sterile 18-Urdu silicone Langford catheter was placed with return of slightly cloudy urine. 10 mL of sterile water placed within the balloon. Through the patient's previous abdominal incision, the lower half of the incision between the umbilicus and the pubic symphysis was used to make an incision down to the level of the rectus fascia. The entirety of the incision tract was noted to be characterized by copious thick indurated scar tissue down to the level of the muscle. The muscle was incised and scar tissue continued into the space of Retzius. The space of Retzius was finally entered and some relatively pliable fat was encountered. The space of Retzius was freed on both sides, allowing for placement of a [place] retractor. Attempted palpation of the pump in the retropubic area met with a wall of scar tissue. Therefore, to direct dissection, the bladder was distended through the sterile catheter and two 2-0 Vicryl stay sutures were placed prior to incising the bladder sharply to visualize it from within. From inside the bladder, the area of extrusion of the penile prosthesis reservoir was able to be palpated. Dissection was therefore carried down in this direction anterior to the bladder. The reservoir was noted to be encapsulated within a thick exuberant coating of inflamed scar tissue. This was entered and the reservoir was used as a plane of dissection to free it. The prosthesis was then deflated to allow for distention of the reservoir and better tissue dissection. Within this capsule, small pockets of purulence were encountered, although the majority of the tissue did not demonstrate gross evidence of infection. When these were encountered, a culture swab was taken and sent for analysis. After this anatomy had been defined, incision was made over the scrotal pump in anterior scrotal location. Purulence was immediately encountered here and again this was also swabbed and sent for culture. The pump was preliminarily dissected free and the tubing which led to the reservoir was identified. The prosthesis was then inflated using the pump to allow for decompression of the reservoir and inflation of the corporal bodies to allow for dissection onto these. The tubing was then clamped at the level of the pump and divided. The reservoir was then able to be removed through the abdominal incision with the tubing noted to be intact. This was sent for foreign body culture as well. Within the same cavity, the second pump which had been divided at the time of the reservoir exchange in June 2018 was encountered. This was able to be grasped and removed with a clip and noted to be present on the tubing indicated the site of division. All foreign bodies were therefore removed from the abdominal portion of the case at this point. The inflamed scar tissue sac which was present around the abdominal reservoir was resected and discarded. A deep hole at the level of the bladder neck was able to be appreciated at this time. With some difficulty, this was closed using 2-0 Vicryl on a UR-6 and UR-5 needle. After this was completed, the bladder was tested and the distal portion of the bladder was noted to be watertight. A second imbricating closure was performed using interrupted Lembert style sutures. The bladder was left open until further along the case. Attention was then turned to the level of the scrotum where the tubing was followed down to the level of the corpora on both sides. Again, dense exuberant scarring was present in all planes of dissection. At one point, a small ureterotomy was made exposing the Langford catheter. This was approximately 1 mm in length. This was able to be easily reapproximated with a fine suture 3-0 Vicryl in a [id number] fashion in 2 layers. Seeing the depth of the insertion of the tubing within the corporal, incision was made on the lateral aspects of the corpora distally to allow for extirpation of the corporal bodies. A 4-cm rear tip extenders which had been noted in the previous operative note were able to be removed along with the corporeal prosthesis intact and still adhered. The tubing was divided to allow for the prosthesis to be removed without the need for further corporotomy. Some debate was undertaken as to whether to close the corporotomies or not, but due to the concern over the containment of infection and further scarring and narrowing of the corporal bodies, should an attempt to be made at replacement of the prosthesis in the future. These were left open. The remaining tubing and pump were able to be removed easily with no evidence of any missing portion of the tubing or components. Throughout the case, generous irrigation with bacitracin irrigation was then performed. The bladder was then closed in 2 layers using 2-0 Vicryl and 2-0 chromic sutures. This was tested and noted to be watertight. A #10 KEN drain was brought in via the left lower quadrant and placed with posterior to the pubic bone to drain any fluid present. The fascial incision was closed in 2 layers using a looped PDS, #1 with some difficulty due to the induration of the tissue. Subcutaneous tissues were closed using running and interrupted Vicryl suture and skin was closed using skin misti. At the level of the scrotum, the incision which required a wide extension at the superior aspect to allow for access to the lateral aspect of the corpora was closed using a 2-0 Vicryl suture on the deep layers and interrupted 2-0 Vicryl and 2-0 chromic sutures at the level of the skin. A Cr drain had been placed through the boundaries of the scrotal wound prior to completion of closure and was placed to bulb suction. A scrotal support and fluffs were placed as well as abdominal dressing with 4 x 4s taper tape. Drains were placed to bulb suction and Langford catheter was placed to gravity drainage. Local anesthesia was provided at the level of the abdominal incision prior to completion of closure. Anesthesia was reversed and the patient was transferred to recovery room in stable condition. FOLLOWUP CARE: The patient will be admitted to the floor for intravenous antibiotics and pain control for overnight management. I attest to the content of the Intraoperative Record and any orders documented therein. Any exceptions are noted below. HECTORD
--- NOTE | 2019-05-18 09:25 | Discharge Summary ---
Date of Service May 18, 2019 Admission HPI Per Admitting Provider Patient with eroded and infected penile prosthesis being admitted for removal. Admission Exam (Per Admitting) Constitutional well developed and well nourished; no acute distress Eyes eyes not dysmorphic ENMT Ears: no external ear abnormality Neck trachea midline; no anterior neck swelling Respiratory no respiratory distress and does not use accessory muscles Cardiovascular Vessels: radial pulses present Gastrointestinal (Abdomen) Inspection/Auscultation: abdomen not distended Percussion/Palpation: abdomen soft; abdomen nontender Musculoskeletal Head/Neck/Chest: normocephalic and neck supple Skin normal turgor Neurologic awake; not obtunded Psychiatric Orientation: oriented x 3 Lymphatic no lymphadenopathy Discharge Data Procedures Performed Operation Date: 04/28/19 11:10 Actual Procedures p Removal of Infected Penile Prosthesis(Not Applicable) - Ruiz Luu MD s Bladder Exploration(Not Applicable) - Ruiz Luu MD Hospital Course (1) Complication of implanted penile prosthesis: 68 yo male s/p difficult extirpation of infected penile prosthesis, POD#1. Pt progressing very well. Expected clinical course reviewed in detail. Pt feels like he needs to have BM, unable. Will give dulcolax now to prevent straining. Ordered abdominal binder for extra support. Plan to discharge home after lunch as long as he continues to tolerate. ~3pm with his 's availability as they live in [place]. Please pull abdominal KEN prior to discharge. Keep scrotal drain and xiong catheter. All questions answered. Pt agreeable to plan of care. Discharge Instructions See DC instruction sheet and meds. Outpatient visits confirmed.
== END 2019-04-29 16:30 | disposition home or self-care (01) | DRG 989 ==
LOC: ASU 09:38 → 3N 15:17

== ENCOUNTER 2019-05-04 12:49 | Inpatient (IN) ==
[2019-05-04] MEDS ORDERED: MoRPHine SULFATE 4 MG/ML 1 ML CARP\\VIAL IV STA (13:14)
[2019-05-04] MEDS ORDERED: SODIUM CHLORIDE 0.9% 1000ML 500 ML IV ONE (13:15)
[2019-05-04 13:41] LABS: Appearance Urine Turbid (Clear); Bilirubin Urine Negative (Negative); Blood Urine 3+ (Negative); Color Urine Red; Glucose Urine UA Negative (Negative); Ketones Urine Negative (Negative); Leukocyte Esterase Urine Trace (Negative); Nitrite Urine Negative (Negative); Urobilinogen Urine Negative (Negative); pH Urine 7.5 (4.5-7.5)
[2019-05-04 13:42] LABS: Protein Urine 3+ (Negative)
[2019-05-04 13:42] LABS: iSTAT Creatinine 1.2 mg/dl (0.6-1.3); iSTAT Hemoglobin 9.9 g/dl (14.0-18.0); iSTAT Ionized Calcium 1.15 mmol/l (1.12-1.32); iSTAT Potassium 5.2 mEq/L (3.3-5.0)
[2019-05-04 13:47] LABS: Epithelial Cell Urine 0-5 /lpf (0-5); RBC Urine >30 /hpf (0-4); WBC Urine >30 /hpf (0-5)
[2019-05-04 13:55] LABS: Bacteria Urine 1+ (Negative)
[2019-05-04] MEDS ORDERED: IOVERSOL 100ml IV PRN (14:24)
--- NOTE | 2019-05-04 14:54 | CT Scan Report ---
CT pelvis wo/w con CLINICAL HISTORY: 68 years-old Male presenting with cystogram, pelvic pain. TECHNIQUE: Multidetector CT of the pelvis was performed before and after the administration of intrav enous contrast. IV contrast: 94 mL of Optiray 320. One or more dose lowering techniques were used con sistent with the principles of ALARA (as low as reasonably achievable), including automatic exposure control, mA or kV adjustment to individual patient size, and/or use of iterative reconstruction. COMPARISON: 04/15/2019. CT DOSE (mGy.cm): The estimated cumulative dose is 2152.7 to. FINDINGS: Regulation Supervisor topogram: Metallic foreign body projects over the right lower quadrant. Surgical skin misti i n place. The urinary bladder is partially opacified with contrast administered via the Langford catheter. Signifi cant irregularity and thickening of the bladder wall. Irregular filling defect within the urinary violeta dder is fully intraluminal and does not convincingly appear to emanate from the bladder wall, however , there is questionable minimal enhancement of this abnormal soft tissue. This is favored to represen t blood products. There is a outpouching from the urinary bladder along the anterior inferior wall with extensive surro unding fat infiltration. This does not opacify with contrast and is thick-walled measuring 5.2 cm. A small focus of gas is noted. This may represent the prior site of the reservoir for the penile implan t, which has been removed. Surgical clips noted along the infraumbilical incision site in the midline . Exuberant granulation tissue subjacent to the incision site. No focal fluid collection. There is al so extensive infiltrative changes in the space of Retzius and anterior extraperitoneal superior pelvi s. A Langford catheter is in place within the urinary bladder. The distal ureters are nondistended. Prostat e is normal in size and appearance. There is a sizable fluid collection tracking along the ventral aspect of the penis with layering high density material. Extensive surrounding infiltrative changes. Bilateral hydroceles suspected. Postsurgical changes of appendectomy. Mild stool burden. No bowel obstruction. No free fluid or gas w ithin the pelvis. Extensive atherosclerosis. No pelvic lymphadenopathy. Small fat-containing inguinal hernias. Postsurg ical changes of the lower quadrants. Degenerative changes of the lower lumbar spine and sacroiliac dwaine ints. IMPRESSION: 1. Status post removal of the penile implant and reservoir. Thick walled fluid collection along the anterior inferior bladder wall may represent the prior site of the reservoir. Sterility of this colle ction cannot be confirmed. 2. Exuberant granulation tissue in the extraperitoneal anterior superior pelvis/space of Retzius. 3. Fluid collection along the ventral aspect of the base of the penis most concerning for possible u rethral injury. This may relate to the recent penile implant. A urethral diverticulum would be unexpe cted in a male patient. 4. Extensive soft tissue infiltration along the base of the penis. Correlate clinically to exclude c ellulitis. 5. Filling defect within the bladder lumen most likely represents blood products. A polypoid bladder neoplasm is considered unlikely despite the apparent minimal enhancement, which may represent pseudo enhancement. 6. Bladder wall thickening suggest chronic bladder outlet obstruction. Electronically signed by: Damon Goel M.D. 05/04/2019 2:53 PM
[2019-05-04] MEDS ORDERED: MoRPHine SULFATE 2 MG/ML CARP IV STA (15:17)
--- NOTE | 2019-05-04 15:28 | Emergency Department Note ---
Entered by Reagan Stevenson acting as a scribe for Wilson Mayen DO History of Present Illness General Chief complaint: Urinary Symptoms Stated complaint: PAIN SHEEHAN CATHETER Time Seen by Provider: 05/04/19 12:56 Source: patient History of Present Illness Onset (ago): day(s) 6 Location: pelvis Pain Consistency: + other (episode) Maximum Pain Intensity: 6 Quality: + other (urinary symptoms ) Associated symptoms: + other (+bladder spasms; +urge to urinate; +burning se nsation; +blood in urine) The patient is a 68 year old male who presents to the Emergency Room with complaints of an episode of urinary symptoms that have occurred after penile imp lant removal surgery that was done on [place] [address] Espinoza. The patient complains of bladder spasms, which makes the patient feel the urge to urinate, and he reports a burning sensation when urinating ever since the surgery. The patient also notes blood in urine that began after surgery as well. The patient states he had a penile implant last June, but the patient states he got it removed because he kept obtaining urinary tract infections due to the implant. The patient notes history of A Fib, and he notes he is on blood thinners. Home Medications Home Medications Medication Instructions Recorded Confirmed Type ascorbic acid (vitamin C) [Vitamin 500 mg PO BID 06/02/18 05/04/19 History C] atorvastatin 80 mg PO HS 06/02/18 05/04/19 History levothyroxine 100 mcg PO QAM 06/02/18 05/04/19 History metformin 1,000 mg PO BID 06/02/18 05/04/19 History metoprolol succinate 25 tab PO BID 06/02/18 05/04/19 History Entresto 1 tab PO BID 04/13/19 05/04/19 History ipratropium bromide 2 spray INTRANASAL TID 04/13/19 05/04/19 History magnesium 400 mg PO BID 04/13/19 05/04/19 History olopatadine 1 drp OPHTHALMIC (EYE) BID 04/13/19 05/04/19 History pantoprazole 20 mg PO QAM PRN 04/13/19 05/04/19 History doxycycline monohydrate 100 mg 100 mg PO BID #60 cap 04/19/19 05/04/19 Rx capsule docusate sodium [Colace] 100 mg PO BID #60 cap 04/29/19 05/04/19 Rx oxybutynin chloride 5 mg PO BID PRN #60 tab 04/29/19 05/04/19 Rx oxycodone-acetaminophen [Percocet] 1 tab PO TID PRN #20 tab 04/29/19 05/04/19 Rx apixaban [Eliquis] 5 mg PO BID 05/04/19 05/04/19 History ciclopirox 1 applic TOPICAL UD 05/04/19 05/04/19 History Allergies Allergy/AdvReac Type Severity Reaction Status Date / Time cefadroxil [From Duricef] Allergy Unknown lips Verified 05/04/19 13:50 swelling Past Med/Surg History Medical History Abdominal bloating per patient, reason on PPI Anemia hgb stable in the 9-10 range in setting of hematuria Atrial fibrillation paroxysmal s/p watchman ANDRE closure procedure (04/01/2019) CAD (coronary artery disease) PCI with LIZ to mid LAD (08/27/2018)- patent per 01/2019 repeat cardiac cath; per cardiac cath report, hx SVG to RCA graft (remotely placed per cardiology records; patient denies hx of bypass graft at PAT visit) Diabetes mellitus, type 2 Dry eye syndrome GERD (gastroesophageal reflux disease) rare with food triggers Hematuria History of aortic valve disease s/p AVR (2009) History of blood transfusion S/P colon resection History of skin cancer Hx of nasal polyp Hx of sleep apnea per patient, retesting showed patient no longer needs device Hypertension Hyponatremia mild, chronic in the low 130's Hypothyroid PAD (peripheral artery disease) S/P right SFA stent/left TPT (tibial peroneal) stent (2015) Surgical History H/O removal of cyst LEG History of appendectomy 01/14/15= OPEN APPE= GRADE VIEW 3, ESPINOZA 4 ETT 7.5 AT [facility] History of cardiac radiofrequency ablation 09/2018 History of cardioversion 08/2018 History of colon resection 09/18 PERFORATION (WITH FOREIGN BODY PER RECORDS OBTAINED) History of colostomy reversal History of penile implant History of procedure for peripheral vascular disease S/P RIGHT SFA STENT/LEFT TPT (TIBIAL PERONEAL) STENT (2015) Hx of aortic valve replacement 2009 Hx of cardiac cath = no stents; 08/27/18 LIZ to mid LAD; repeat cardiac cath 01/2019 with patent stent, 04/01/2019 had watchman procedure Hx of colonoscopy Hx of colostomy SUBSEQUENT REVERSAL Hx of endoscopy Family History Father Family history of diabetes mellitus Brother Family history of diabetes mellitus Social History Preferred Language: Danish Communication Ability: Effective Tip Fixer Required: No Beliefs That Will Affect Care: None Current Living Situation: Spouse Feels Safe at Home: Yes Smoking Status: Former smoker Tobacco Type: cigarettes ; Second Hand Exposure: No ; Hx Alcohol Use: No Hx Substance Use: No Review of Systems See HPI for pertinent positives & negatives. and A total of 10 systems reviewed and were otherwise negative Physical Exam Vital Signs Vital Signs - 24 hr 05/04/19 12:53 05/04/19 13:33 05/04/19 13:44 Temperature 36.4 C L Temperature Source Oral Sepsis Recent Fever Within 48 Hours No Sepsis Action Taken by Nursing No Action Required Pulse Rate 96 H 85 95 H Pulse Rate from SpO2 Sensor 82 87 Respiratory Rate 16 19 19 Blood Pressure 148/73 H 126/60 Blood Pressure Mean 98 82 Pulse Oximetry 100 100 99 Oxygen Delivery Method Room Air Room Air 05/04/19 14:00 Temperature Temperature Source Sepsis Recent Fever Within 48 Hours Sepsis Action Taken by Nursing Pulse Rate 81 Pulse Rate from SpO2 Sensor 93 H Respiratory Rate 24 Blood Pressure 147/76 H Blood Pressure Mean 99 Pulse Oximetry 97 Oxygen Delivery Method Room Air CONSTITUTIONAL/VITAL SIGNS: Reviewed / noted above. GENERAL: Non-toxic in appearance. INTEGUMENTARY: Warm, dry, and [place]. HEAD: Normocephalic. EYES: without scleral icterus or trauma. ENT/OROPHARYNX: clear and moist. LYMPHADENOPATHY/NECK: Is supple without lymphadenopathy or meningismus. RESPIRATORY: Lungs clear and equal. CARDIOVASCULAR: Regular rate and rhythm. GI/ABDOMEN: There was a vertical incision over the bladder with misti in pl luis, no evidence of infection, no significant tenderness. : Sheehan catheter in place draining sanguineous urine. EXTREMITIES: Warm and well perfused. BACK: No CVA tenderness. NEUROLOGICAL: Intact without focal deficits. PSYCHIATRIC: normal affect. MUSCULOSKELETAL: Normally developed with good muscle tone. Course 1307: Past medical records reviewed. The patient was evaluated in room C10. A complete history and physical exam was performed. 1323: I discussed the patient's case with [facility]. 1541: I discussed the patient's imaging results with Halina [facility]. Halina recommends admission. 1549: I [facility] the [facility]. Dr. Avila will evaluate the patient for further management. Consultations Consultation #1: I discussed the patient's case with Halina [facility]. Time: 13:23 Consultation #2: I discussed the patient's imaging results with Halina Bro NP Urology. Halina recommends admission. Time: 15:41 Consultation #3: I [facility] the patient's [facility]. Dr. Avila will evaluate the patient for further management. Time: 15:49 Administered Medications Ioversol (Optiray 320 100ml) 94 ml IV ONCE PRN PRN Reason: Interaction Checking Stop: 05/08/19 14:23 Last Admin: 05/04/19 14:25 Dose: 94 ml Documented by: [id number] Discontinued Medications Sodium Chloride (Nss 1000ml) 500 mls @ 999 mls/hr IV .Q31M ONE Stop: 05/04/19 13:45 Last Infusion: 05/04/19 14:03 Dose: 0 mls/hr Documented by: [id number] Admin: 05/04/19 13:32 Dose: 999 mls/hr Documented by: [id number] Morphine Sulfate (Morphine Sulfate) 4 mg IV NOW STA Stop: 05/04/19 13:15 Last Admin: 05/04/19 13:32 Dose: 4 mg Documented by: [id number] Morphine Sulfate (Morphine Sulfate) 2 mg IV NOW STA Stop: 05/04/19 15:18 Last Admin: 05/04/19 15:33 Dose: 2 mg Documented by: [id number] Medical Decision Making Differential Diagnosis Differential diagnosis: Etiologies such as appendicitis, diverticulitis, PUD, biliary pathology, UTI, pancreatitis, obstruction, mesenteric ischemia, aortic pathology, infections, inflammatory bowel disease, renal colic, as well as others were entertained. Medical Records Attestation: I reviewed the patient's medical records. Home Medications Current Medication List: was personally reviewed by me Laboratory Data Attestation: I reviewed the patient's lab results. Lab Results 05/04/19 05/04/19 Range/Units 13:12 13:28 POC Hgb 9.9 L (14.0-18.0) g/dl POC Hct 29 L (42-52) % POC Sodium 134 L (135-144) mEq/L POC Potassium 5.2 H (3.3-5.0) mEq/L POC Chloride 101 (101-112) mEq/L POC Total CO2 23 L (24-31) mEq/l POC Anion Gap 17.0 (16-25) mmol/L POC BUN 13 (7-18) mg/dl POC Creatinine 1.2 (0.6-1.3) mg/dl POC Glucose (other) 124 H (70-99) mg/dl POC Ioniz Calcium [place] 1.15 (1.12-1.32) mmol/l Urine Color Red Urine Appearance Turbid A (Clear) Urine pH 7.5 (4.5-7.5) Ur Specific [place] 1.020 (1.000-1.030) Urine Protein 3+ H (Negative) Urine Glucose (UA) Negative (Negative) Urine Ketones Negative (Negative) Urine Blood 3+ H (Negative) Urine Nitrite Negative (Negative) Urine Bilirubin Negative (Negative) Urine Urobilinogen Negative (Negative) Ur Leukocyte Esterase Trace H (Negative) Urine RBC >30 H (0-4) /hpf Urine WBC >30 H (0-5) /hpf Ur Epithelial Cells 0-5 (0-5) /lpf Urine Bacteria 1+ H (Negative) Imaging Data Radiologist's Impression: Radiology results as stated below per my review and the radiologist's interpretation: CT pelvis wo/w con CLINICAL HISTORY: 68 years-old Male presenting with cystogram, pelvic pain. TECHNIQUE: Multidetector CT of the pelvis was performed before and after the administration of intravenous contrast. IV contrast: 94 mL of Optiray 320. One or more dose lowering techniques were used consistent with the principles of ALA RA (as low as reasonably achievable), including automatic exposure control, mA or kV adjustment to individual patient size, and/or use of iterative reconstruction. COMPARISON: 04/15/2019. CT DOSE (mGy.cm): The estimated cumulative dose is 2152.7 to. FINDINGS: Adult And Pediatric Neurologist topogram: Metallic foreign body projects over the right lower quadrant. Surgical skin misti in place. The urinary bladder is partially opacified with contrast administered via the Sheehan catheter. Significant irregularity and thickening of the bladder wall. Irregular filling defect within the urinary bladder is fully intraluminal and does not convincingly appear to emanate from the bladder wall, however, there is questionable minimal enhancement of this abnormal soft tissue. This is favored to represent blood products. There is a outpouching from the urinary bladder along the anterior inferior wall with extensive surrounding fat infiltration. This does not opacify with contrast and is thick-walled measuring 5.2 cm. A small focus of gas is noted. This may represent the prior site of the reservoir for the penile implant, which has been removed. Surgical clips noted along the infraumbilical incision site in the midline. Exuberant granulation tissue subjacent to the incision site. No focal fluid collection. There is also extensive infiltrative changes in the space of Retzius and anterior extraperitoneal superior pelvis. A Sheehan catheter is in place within the urinary bladder. The distal ureters are nondistended. Prostate is normal in size and appearance. There is a sizable fluid collection tracking along the ventral aspect of the penis with layering high density material. Extensive surrounding infiltrative changes. Bilateral hydroceles suspected. Postsurgical changes of appendectomy. Mild stool burden. No bowel obstruction. No free fluid or gas within the pelvis. Extensive atherosclerosis. No pelvic lymphadenopathy. Small fat-containing inguinal hernias. Postsurgical changes of the lower quadrants. Degenerative changes of the lower lumbar spine and sacroiliac joints. IMPRESSION: 1. Status post removal of the penile implant and reservoir. Thick walled fluid collection along the anterior inferior bladder wall may represent the prior site of the reservoir. Sterility of this collection cannot be confirmed. 2. Exuberant granulation tissue in the extraperitoneal anterior superior pelvis/space of Retzius. 3. Fluid collection along the ventral aspect of the base of the penis most concerning for possible urethral injury. This may relate to the recent penile implant. A urethral diverticulum would be unexpected in a male patient. 4. Extensive soft tissue infiltration along the base of the penis. Correlate clinically to exclude cellulitis. 5. Filling defect within the bladder lumen most likely represents blood products. A polypoid bladder neoplasm is considered unlikely despite the apparent minimal enhancement, which may represent pseudoenhancement. 6. Bladder wall thickening suggest chronic bladder outlet obstruction. Electronically signed by: Damon Goel M.D. 05/04/2019 2:53 PM Blood Pressure Blood Pressure Findings: Elevated blood pressure Blood Pressure Disposition: Referred to patients primary care provider MDM Narrative This is a 68-year-old male who presents to the ED with a chief complaint of bladder spasms and discomfort in the suprapubic area. The patient had a penile implant removed on the . He states that he has been having hematuria and bladder spasms since discharge. The patient is on Ditropan. His vital signs did not reveal a fever. He is hypertensive. His physical exam reveals postsurgical misti in the vertical fashion over the bladder region of the abdomen. There is no evidence of infection. There is a Sheehan catheter in place in the penis and it is draining bloody urine. Patient does not have any segment tenderness on my exam. The patient's laboratory studies including a hemoglobin and chemistry panel reveals some mild anemia and normal kidney function. CT scan of the abdomen pelvis was performed and details are noted above. I spoke with Halina from the urology service with Dr. Espinoza. They were the ones that recommended the CT cystoscopy. They did review the results and recommended inpatient admission and broad-spectrum antibiotics. He was placed on aztreonam and vancomycin. He will be seen by the hospitalist. I spoke with Dr. Patiño. During his stay, the patient was treated with IV morphine for his pain. The nurse also had to irrigate his catheter as clots were clogging it. Impression & Plan Abdominal pain, Hematuria, Infected penile implant Discharge Plan Visit Data Chief Complaint: Urinary Symptoms Stated Complaint: PAIN SHEEHAN CATHETER ED Provider: Wilson Mayen Discharge Problem: Abdominal pain, Hematuria, Infected penile implant Patient Disposition: Being Evaluated by Hospitalist Forms Stand Alone Forms: My [facility] [employer] Prescriptions Prescriptions: No Action doxycycline monohydrate 100 mg capsule 100 mg PO BID Qty: 60 RF: 0 metformin 500 mg Tablet 1,000 mg PO BID RF: 0 atorvastatin 80 mg Tablet 80 mg PO HS RF: 0 levothyroxine 100 mcg Tablet 100 mcg PO QAM RF: 0 ascorbic acid (vitamin C) [Vitamin C] 500 mg Tablet 500 mg PO BID RF: 0 metoprolol succinate 25 mg Capsule,Sprinkle,Er 24hr 25 tab PO BID RF: 0 magnesium 200 mg Tablet 400 mg PO BID RF: 0 pantoprazole 20 mg Tablet,Delayed Release (Dr/Ec) 20 mg PO QAM PRN (Reason: Acid Reflux) RF: 0 Entresto 49-51 mg Tablet 1 tab PO BID RF: 0 olopatadine 0.1 % Drops 1 drp OPHTHALMIC (EYE) BID RF: 0 ipratropium bromide 0.03 % [place],Non-Aerosol 2 spray INTRANASAL TID RF: 0 oxybutynin chloride 5 mg tablet 5 mg PO BID PRN (Reason: bladder spasms) Qty: 60 RF: 0 oxycodone-acetaminophen [Percocet] 7.5-325 mg tablet 1 tab PO TID PRN (Reason: pain) Qty: 20 RF: 0 docusate sodium [Colace] 100 mg capsule 100 mg PO BID Qty: 60 RF: 0 ciclopirox 8 % solution 1 applic topical UD RF: 0 Eliquis 5 mg tablet 5 mg PO BID RF: 0 Referrals Referrals: Germain Hatfield [Primary Care Provider] - Discharge Problem: Abdominal pain Qualifiers: Abdominal location: unspecified location Qualified Code(s): R10.9 - Unspecified abdominal pain Hematuria Qualifiers: Hematuria type: unspecified type Qualified Code(s): R31.9 - Hematuria, unspecified Infected penile implant Qualifiers: Encounter type: initial encounter Qualified Code(s): T83.61XA - Infection and inflammatory reaction due to implanted penile prosthesis, initial encounter The scribe's documentation has been prepared under my direction and personally reviewed by me in its entirety. I confirm that the note above accurately reflects all work, treatment, procedures, and medical decision making performed by me.
[2019-05-04] MEDS ORDERED: VANCOMYCIN CONSULT ACTIVE PRN ×2 (15:44→17:19)
[2019-05-04] MEDS ORDERED: VANCOMYCIN HCL 2,250 MG in SODIUM CHLORIDE 0.9% 500 ML IV ONE (15:44)
[2019-05-04] MEDS ORDERED: AZTREONAM 1,000 MG in DEXTROSE 5% 100 ML IV STA (15:45)
[2019-05-04] MEDS ORDERED: ONDANSETRON INJ 2 MG/ML 2 ML VIAL IV PRN (17:19)
[2019-05-04] MEDS ORDERED: DEXTROSE 50% 50 ML SYRINGE IV PRN (17:19)
[2019-05-04] MEDS ORDERED: GLUCOSE 10 TABS/TUBE PO PRN (17:19)
[2019-05-04] MEDS ORDERED: GLUCOSE 40% GEL 15 GM TUBE PO PRN (17:19)
[2019-05-04] MEDS ORDERED: CARBOHYDRATES FOR HYPOGLYCEMIA PO PRN (17:19)
[2019-05-04] MEDS ORDERED: ALUMINUM/MAGNESIUM SUSP 30 ML UDC PO PRN (17:19)
[2019-05-04] MEDS ORDERED: MAGNESIUM HYDROXIDE SUSP 30 ML UDC PO PRN (17:19)
[2019-05-04] MEDS ORDERED: GLUCAGON FOR INJ 1 MG VIAL SQ PRN (17:19)
[2019-05-04] MEDS ORDERED: POLYETHYLENE (MIRALAX) 17 GM PACK PO PRN (17:19)
[2019-05-04] MEDS ORDERED: PANTOprazole 40 MG TAB PO PRN (17:26)
--- NOTE | 2019-05-04 17:49 | History & Physical Report ---
Date of Service May 04, 2019 Assessment & Plan (1) Abdominal pain: Suspected intra-abdominal abscess CT scan abdomen pelvis showed fluid collection along the ventral aspect of base of the penis with extensive soft tissue infiltration Also there is thick walled fluid collection at the site of previous reservoir Continue aztreonam/Vanco Urology consult, Dr. Espinoza Infectious diseases consult Will discuss with patient the nature of his allergy with the patient to open up other options with his antibiotics N.p.o. after midnight for possible surgical intervention (2) Hematuria: Likely secondary to above (3) Infected penile implant: As above (4) Dyslipidemia: Continue Lipitor (5) Graves disease: Continue Synthroid (6) Hypothyroidism, postablative: Continue Synthroid (7) Hypertension: Continue metoprolol (8) Diabetes: Hold metformin Check hemoglobin A1c Sliding-scale insulin (9) Chronic atrial fibrillation: Chronic atrial fibrillation, continue supportive care Currently rate controlled Continue metoprolol Hold Eliquis, last dose was this morning History of Present Illness 68 patient requests this type II on metformin, dyslipidemia, essential, and obesity, patient has erectile dysfunction status post an implant that was placed from after that the implant had a malfunction, from 2009 until 2017 patient did not pursue any medical attention, and an 27 June [address] another implant. After placing this implant he continued to have urinary tract infections from October 2018 until 2 weeks prior to admission where he had a cystoscopy and it found that the reservoir has eroded into the urinary bladder. On 04/29/2019 patient had an open bladder exploration with explantation of the infected penile prosthesis, Langford catheter was placed at that time. Patient was discharged on doxycycline oral. Since then patient started having lower abdominal pain, hematuria, intermittently urine comes around the Langford, also having generalized fatigue and chills. Primary Care Provider: Germain Hatfield Allergies Allergy/AdvReac Type Severity Reaction Status Date / Time cefadroxil [From Duricef] Allergy Unknown lips Verified 05/04/19 13:50 swelling Home Medications Home Medications Medication Instructions Recorded Confirmed Type ascorbic acid (vitamin C) [Vitamin 500 mg PO BID 06/02/18 05/04/19 History C] atorvastatin 80 mg PO HS 06/02/18 05/04/19 History levothyroxine 100 mcg PO QAM 06/02/18 05/04/19 History metformin 1,000 mg PO BID 06/02/18 05/04/19 History metoprolol succinate 25 tab PO BID 06/02/18 05/04/19 History Entresto 1 tab PO BID 04/13/19 05/04/19 History ipratropium bromide 2 spray INTRANASAL TID 04/13/19 05/04/19 History magnesium 400 mg PO BID 04/13/19 05/04/19 History olopatadine 1 drp OPHTHALMIC (EYE) BID 04/13/19 05/04/19 History pantoprazole 20 mg PO QAM PRN 04/13/19 05/04/19 History doxycycline monohydrate 100 mg 100 mg PO BID #60 cap 04/19/19 05/04/19 Rx capsule docusate sodium [Colace] 100 mg PO BID #60 cap 04/29/19 05/04/19 Rx oxybutynin chloride 5 mg PO BID PRN #60 tab 04/29/19 05/04/19 Rx oxycodone-acetaminophen [Percocet] 1 tab PO TID PRN #20 tab 04/29/19 05/04/19 Rx apixaban [Eliquis] 5 mg PO BID 05/04/19 05/04/19 History ciclopirox 1 applic TOPICAL UD 05/04/19 05/04/19 History Past Med/Surg History Medical History Abdominal bloating per patient, reason on PPI Anemia hgb stable in the 9-10 range in setting of hematuria Atrial fibrillation paroxysmal s/p watchman ANDRE closure procedure (04/01/2019) CAD (coronary artery disease) PCI with LIZ to mid LAD (08/27/2018)- patent per 01/2019 repeat cardiac cath; per cardiac cath report, hx SVG to RCA graft (remotely placed per cardiology records; patient denies hx of bypass graft at PAT visit) Diabetes mellitus, type 2 Dry eye syndrome GERD (gastroesophageal reflux disease) rare with food triggers Hematuria History of aortic valve disease s/p AVR (2009) History of blood transfusion S/P colon resection History of skin cancer Hx of nasal polyp Hx of sleep apnea per patient, retesting showed patient no longer needs device Hypertension Hyponatremia mild, chronic in the low 130's Hypothyroid PAD (peripheral artery disease) S/P right SFA stent/left TPT (tibial peroneal) stent (2015) Surgical History H/O removal of cyst LEG History of appendectomy 01/14/15= OPEN APPE= GRADE VIEW 3, ESPINOZA 4 ETT 7.5 AT [facility] History of cardiac radiofrequency ablation 09/2018 History of cardioversion 08/2018 History of colon resection 09/18 PERFORATION (WITH FOREIGN BODY PER RECORDS OBTAINED) History of colostomy reversal History of penile implant History of procedure for peripheral vascular disease S/P RIGHT SFA STENT/LEFT TPT (TIBIAL PERONEAL) STENT (2015) Hx of aortic valve replacement 2009 Hx of cardiac cath = no stents; 08/27/18 LIZ to mid LAD; repeat cardiac cath 01/2019 with patent stent, 04/01/2019 had watchman procedure Hx of colonoscopy Hx of colostomy SUBSEQUENT REVERSAL Hx of endoscopy Family History Father Family history of diabetes mellitus Brother Family history of diabetes mellitus Social History Preferred Language: Portuguese Communication Ability: Effective Metal Filer Required: No Beliefs That Will Affect Care: None Current Living Situation: Spouse Feels Safe at Home: Yes Smoking Status: Former smoker Tobacco Type: cigarettes ; Second Hand Exposure: No ; Hx Alcohol Use: No Hx Substance Use: No Review of Systems Review of Systems: Review of system Constitutional: Generalized fatigue, chills Eyes: no blurring of vision / no eye pain / no discharge / no redness ENT: no hearing loss / no epistaxis /no swallowing problems Respiratory: no cough / no wheezing / no SOB / no hemoptysis Cardiovascular: no Chest pain / no lower extremity edema / no palpitation Abdomen: no pain / no nausea / no vomiting / no constipation Musculoskeletal: no joint pain / no muscle pain / no joint swelling Genitourinary: Dysuria, hematuria, malfunction of Langford catheter Neurologic: no focal weakness / no numbness/tingling / no ataxia Psychiatric: no depression symptoms / no anxiety / no insomnia Endocrine: no excessive thirst / no excessive urination Hematologic: no abnormal bleeding / no bruising / no LN swelling Skin: No rash / no pallor Physical Exam Physical Exam: Physical examination General average built, appears to be in moderate acute distress HEENT: Atraumatic , normocephalic /no jaundice /no pallor /anicteric /no dry mucous membrane /normal external ear inspection Neck: Supple /no swelling /central trach Heart: S1/S2 normal/regular rate and rhythm/no gallop /no rub /no murmur Lungs: Clear to auscultation bilaterally/normal chest with expansion/no rhonchi/no rales/no wheezing/no use of accessory muscles of respiration Abdomen: Lower abdomen his median incision that appears to be clean, patient does have tenderness in his lower abdominal area, erythematous scrotum with Langford catheter coming out with blood hematuria in the Langford catheter site, no pulsatile mass Musculoskeletal: No swelling/no edema/no tenderness/normal range of motion Neuro exam: Awake alert oriented 3/cranial nerves II through XII appear to be intact/sensation intact/moves all extremities/no abnormal movements Psychiatric evaluation: No depressed mood/normal affect Skin: No rash on exposed skin area/no erythema Extremity: Normal pulse/no pitting edema/no clubbing or cyanosis Results & Data Vital Signs (Past 12 Hours) Vital Signs Temp Pulse Resp BP Pulse Ox 05/04/19 17:00 103 H 19 114/50 L 98 05/04/19 16:31 100 H 20 139/70 99 05/04/19 16:30 98 H 24 96 05/04/19 16:00 90 16 136/111 H 99 05/04/19 15:39 100 H 21 163/103 H 99 05/04/19 15:30 110 H 22 05/04/19 15:00 123 H 26 H 05/04/19 14:43 93 H 24 05/04/19 14:00 81 24 147/76 H 97 05/04/19 13:44 95 H 19 99 05/04/19 13:33 85 19 126/60 100 05/04/19 12:53 36.4 C L 96 H 16 148/73 H 100 Code Status & VTE Plan VTE Prophylaxis Plan VTE Prophylaxis will be ordered: Yes PG Care Time/CCT Total # of Minutes Spent Total Time Spent with Patient: 35 minutes total time spent is greater than 50% in coordination of care (as documented) at patient's floor/unit and/or counseling patient/family discussion of care with nursing staff (1) Abdominal pain Abdominal location: unspecified location Qualified Code(s): R10.9 - Unspecified abdominal pain (2) Hematuria Hematuria type: unspecified type Qualified Code(s): R31.9 - Hematuria, unspecified (3) Infected penile implant Encounter type: initial encounter Qualified Code(s): T83.61XA - Infection and inflammatory reaction due to implanted penile prosthesis, initial encounter
[2019-05-04] MEDS ORDERED: INSULIN ASPART 100 UNITS/ML 3 ML PEN SC SCH ×2 (19:00→21:00)
[2019-05-04] MEDS ORDERED: IPRATROPIUM BROMIDE NASAL SPRAY 0.06% 15ML NAE PRN (19:00)
--- NOTE | 2019-05-04 19:43 | Pharmacy Report ---
Pharmacy Abx Initial Consult - Date of Service May 04, 2019 - Pharmacy Dosing Scope Date of Consult: 05/04/19 Consultation requested by: Dr. Guevara Pharmacy is consulted to initiate Vancomycin IV/PO dosing therapy, order appropriate labs and adjust drug dose/frequency. - Subjective The patient is a 68 year old M admitted on 05/04/19 17:21. - Objective Height: 5 ft 7 in Weight: 92 kg Vital Signs (Past 12hrs): Vital Signs Temp Pulse Resp BP Pulse Ox 05/04/19 18:30 93 H 12 124/68 97 05/04/19 18:01 94 H 18 105/70 96 05/04/19 18:00 93 H 20 05/04/19 17:30 97 H 17 131/86 05/04/19 17:00 103 H 19 114/50 L 98 05/04/19 16:31 100 H 20 139/70 99 05/04/19 16:30 98 H 24 96 05/04/19 16:00 90 16 136/111 H 99 05/04/19 15:39 100 H 21 163/103 H 99 05/04/19 15:30 110 H 22 05/04/19 15:00 123 H 26 H 05/04/19 14:43 93 H 24 05/04/19 14:00 81 24 147/76 H 97 05/04/19 13:44 95 H 19 99 05/04/19 13:33 85 19 126/60 100 05/04/19 12:53 36.4 C L 96 H 16 148/73 H 100 Micro Results: 05/04/19 13:12 Urine Culture - Pending Urine,Indwelling Cath - Risk Factors for Resistance * Hospitalization for 48 hours or more within the past 90 days * Antimicrobial use within the last 90 days: doxycycline - Assessment & Plan Assessment 68 year old M admitted on 05/04 with abdominal pain, hematuria. * s/p penile implant removal surgery on 04/28/19. Pt had implant removed due to problems with UTI's. * ID consulted * Urine culture pending * POC Scr of 1.9, ordered labs for tomorrow am. * PK parameters based on SCr of ~1 (pt baseline). Plan Vancomycin for treatment of UTI/SST Vancomycin IV * Estimated PK Parameters based on baseline SCr of ~1mg/dL : Vd 0.7 L/kg, Scott 0.072 hr-1, t1/2 9.6 hr * Loading dose: 2250 mg (24 mg/kg) * Maintenance dose: 1500 mg IV ( 16 mg/kg) every 12 hours * Goal trough level : 15 to 20 mcg/mL * Trough level ordered for 05/06/19 @1330 Pt also on aztreonam 1gm q 8 hours. Pharmacy will continue to follow and will adjust dose/frequency as necessary. Thank you.
[2019-05-04] MEDS: SACUBITRIL-VALSARTAN 49/51 MG TAB PO SCH (21:09)
[2019-05-04] MEDS: SODIUM CHLORIDE 0.9% 1000ML 1,000 ML IV SCH (21:09)
[2019-05-04] MEDS: MAGNESIUM OXIDE 400 MG TAB PO SCH (21:10)
[2019-05-04] MEDS: ATORVASTATIN 40 MG TAB PO SCH (21:10)
[2019-05-04] MEDS: DOCUSATE SODIUM 100 MG CAP PO SCH (21:10)
[2019-05-04] MEDS: ASCORBIC ACID 500 MG TAB PO SCH (21:11)
[2019-05-04] MEDS: METOPROLOL SUCC 25MG EXT REL TAB PO SCH (21:11)
[2019-05-04] MEDS: OXYBUTYNIN CHLORIDE 5 MG TAB PO PRN (21:11)
[2019-05-04] MEDS: AZTREONAM 1,000 MG in DEXTROSE 5% 100 ML IV SCH (21:48)
[2019-05-05] MEDS: ACETAMINOPHEN 325 MG TAB PO PRN ×2 (01:09→23:30)
[2019-05-05] MEDS: ZOLPIDEM TARTRATE 5 MG TAB PO PRN ×2 (01:09→21:09)
[2019-05-05] MEDS: VANCOMYCIN HCL 1,500 MG in SODIUM CHLORIDE 0.9% 500 ML IV SCH ×2 (01:20→14:55)
[2019-05-05] MEDS: AZTREONAM 1,000 MG in DEXTROSE 5% 100 ML IV SCH ×3 (06:20→21:11)
[2019-05-05] MEDS: LEVOTHYROXINE SODIUM 100 MCG TABLET PO SCH (06:21)
[2019-05-05] MEDS: INSULIN ASPART 100 UNITS/ML 3 ML PEN SC SCH ×4 (06:22→21:12)
[2019-05-05 07:09] LABS: Creatinine Clr Calc Pharmacy 88.2 ml/min; Est GFR (African American) 102.8; Est GFR (Non-African American) 88.7
[2019-05-05 08:25] LABS: Estimated Average Glucose 137 mg/dl; Hemoglobin A1C 6.4 % (4.5-5.6)
[2019-05-05] MEDS: SODIUM CHLORIDE 0.9% 1000ML 1,000 ML IV SCH ×2 (08:36→22:19)
[2019-05-05] MEDS: SACUBITRIL-VALSARTAN 49/51 MG TAB PO SCH ×2 (08:37→21:11)
[2019-05-05] MEDS: METOPROLOL SUCC 25MG EXT REL TAB PO SCH ×2 (08:37→21:09)
[2019-05-05] MEDS: DOCUSATE SODIUM 100 MG CAP PO SCH ×2 (08:37→21:11)
[2019-05-05] MEDS: MAGNESIUM OXIDE 400 MG TAB PO SCH ×2 (08:38→21:11)
[2019-05-05] MEDS: ASCORBIC ACID 500 MG TAB PO SCH ×2 (08:38→21:11)
[2019-05-05] MEDS: LACTOBACILLUS ACIDOPHILUS 1 GM PACK PO SCH ×3 (08:39→17:45)
[2019-05-05 08:52] LABS: Hematocrit (blood only) 25.9 % (42-52); Mean Corpuscular Hemoglobin 24.6 pg (25-34); Mean Corpuscular Hgb Conc 30.9 g/dL (32-36); Mean Corpuscular Volume 79.7 fL (80-100); Mean Platelet Volume 8.7 fL (7.4-10.4); Platelet Count 341 K/uL (130-400); RDW Coefficient of Variation 17.4 % (11.5-14.5); RDW Standard Deviation 50.8 fL (36.4-46.3); Red Blood Count 3.25 M/uL (4.7-6.1); White Blood Count 8.13 K/uL (4.8-10.8)
--- NOTE | 2019-05-05 10:45 | Family Medicine Progress Note ---
Date of Service May 05, 2019 Assessment & Plan (1) Complication of implanted penile prosthesis: - Per Urology note: - no acute surgical intervention at this time - maintain xiong with gentle irrigation - no areas of fluid collection on exam - Pt given Aztreonam and Vanco in ED to cover for infection. - culture from removal of prosthesis grew Coag neg staph [likely staph epidermidis; can be treated with penicillins] - UA showed 1+ bacteria, trace LE, 30+ WBC - Pelvic CT showed soft tissue infiltration and bladder wall thickening likely indicative of chronic bladder outlet obstruction by bloody clots Present on Admission?: Yes (2) Hematuria: 2/2 Eliquis and ASA use vs. Traumatic prosthetic removal causing urethral injury seen on CT - should decrease while holding anticoagulants - will monitor H&H in interim (3) Chronic atrial fibrillation: Anti-Coagulation - Eliquis held due to hematuria Anti-Platelet therapy - hx cardiac stents - consider starting ASA 81mg daily to provide anti-platelet protection Present on Admission?: Yes (4) Abdominal pain: - likely secondary to irritation of bladder wall as seen on CT - high degree of granulation tissue at sites of incision on CT - currently controlled at rest, abdominal pain returns when patient has the urge to urinate Supervising Physician Co-Signing Physician Notes I personally examined the patient and verified all bledsoe points of history and exam, discussed case, and agree with decision making with Dr Harrington. Radha when he pees. Would like catheter out as soon as possible. Discussed treatment plan. Vitals noted, in general he is awake and alert no distress. HEENT normal cephalic atraumatic mucous membranes moist. Breathing unlabored no accessory muscle use good effort. Skin shows no rashes no pallor or icterus. Gross hematuria noted in Xiong. 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 Fortunately no need for imminent surgery per urology, continue Xiong per urology. Hematuriarelated to infection. Obviously we will want to resume antiplatelet ENEDINA, as well as anti-coagulant as soon as is safe. Follow closely. Coronary artery diseasewe will resume antiplatelet ENEDINA. He showing no angina, but his stenting was just back in August. Sara albright to briefly be off of anticoagulation given the risk and benefit of his gross hematuria, but obviously want to resume it ENEDINA. Subjective Pleasant 68 yoM with Hx Afib here for hematuria after prolonged issues with a penile prosthesis that was removed on 04/29. Pt had an initial penile implant placed in 1994, was told in 2009 that it would no longer function, but pt did not have it removed. In June of last year patient expressed interest in having a new prosthesis, so he had the old one removed and new one placed. It was working well until October of this year when he started having pain with pumping/use of prosethesis. He also has been experiencing increasing numbers of UTIs and episodes of hematuria since October. The patient was considering removing the prosthesis at which point he started noticing blood leaking from the bottom of his scrotum, which alarmed urology to concern for infection and they removed the prosthetic at that time and placed a xiong[04/29]. He was recovering well until last night when he started having severe abdominal pain, pain with urination, blood in the urine which led him to come to the ED. In terms of Afib, pt denies SOB, palpitations, chest pain. Attests to being more aware of afib during episodes of pain. Patient is on Eliquis for Afib, was holding it and taking aspirin after the prosthetic removal. Restarted eliquis last night and stopped aspirin the day before. Review of Systems Constitutional: no fever, no chills, no sweats and no body aches Respiratory: no cough and no dyspnea Cardiovascular: no chest pain Gastrointestinal: + abdominal pain; no nausea, no vomiting, no cramping, no constipation, no diarrhea/loose stools and no blood in stools Genitourinary: + dysuria, + hematuria, + genital pain, + testicle pain and + erectile dysfunction; no urinary frequency Physical Exam Constitutional: well developed, well nourished, cooperative and comfortable Respiratory: normal respiratory effort; no respiratory distress and no labored breathing Auscultation: lungs clear to auscultation bilaterally; no crackles and no rales Cardiovascular: Rate/Rhythm: regular rate and + irregularly irregular Genitourinary: Catheter in place, draining frankly red urine. Patient felt the need to urinate while in the room, was visibly in pain while passing urine. Results & Data Vital Signs (Past 12 Hours) Vital Signs Temp Pulse Resp BP Pulse Ox 05/05/19 08:00 36.8 C 76 18 109/62 98 05/05/19 03:37 36.5 C 88 18 131/69 96 05/04/19 23:58 36.6 C 81 20 106/50 L 100 Laboratory Results WBC 8.13 K/uL (4.8-10.8) 05/05/19 06:11 RBC 3.25 M/uL (4.7-6.1) L 05/05/19 06:11 Hgb 8.0 g/dL (14.0-18.0) L 05/05/19 06:11 POC Hgb 9.9 g/dl (14.0-18.0) L 05/04/19 13:28 Hct 25.9 % (42-52) L 05/05/19 06:11 POC Hct 29 % (42-52) L 05/04/19 13:28 MCV 79.7 fL (80-100) L 05/05/19 06:11 MCH 24.6 pg (25-34) L 05/05/19 06:11 MCHC 30.9 g/dL (32-36) L 05/05/19 06:11 RDW Std Deviation 50.8 fL (36.4-46.3) H 05/05/19 06:11 RDW Coeff of Wilfredo 17.4 % (11.5-14.5) H 05/05/19 06:11 Plt Count 341 K/uL (130-400) 05/05/19 06:11 MPV 8.7 fL (7.4-10.4) 05/05/19 06:11 POC Sodium 134 mEq/L (135-144) L 05/04/19 13:28 POC Potassium 5.2 mEq/L (3.3-5.0) H 05/04/19 13:28 POC Chloride 101 mEq/L (101-112) 05/04/19 13:28 POC Total CO2 23 mEq/l (24-31) L 05/04/19 13:28 POC Anion Gap 17.0 mmol/L (16-25) 05/04/19 13:28 POC BUN 13 mg/dl (7-18) 05/04/19 13:28 Creatinine 0.90 mg/dl (0.6-1.4) 05/05/19 06:13 POC Creatinine 1.2 mg/dl (0.6-1.3) 05/04/19 13:28 Est Cr Clr Drug Dosing 88.2 ml/min 05/05/19 06:13 Est GFR ( Amer) 102.8 05/05/19 06:13 Est GFR (Non-Af Amer) 88.7 05/05/19 06:13 POC Glucose 121 (70-99) H 05/05/19 06:20 POC Glucose (other) 124 mg/dl (70-99) H 05/04/19 13:28 Estimat Average Glucose 137 mg/dl 05/05/19 06:13 Hemoglobin A1c 6.4 % (4.5-5.6) H 05/05/19 06:13 POC Ioniz Calcium Elroy 1.15 mmol/l (1.12-1.32) 05/04/19 13:28 Urine Color Red 05/04/19 13:12 Urine Appearance Turbid (Clear) A 05/04/19 13:12 Urine pH 7.5 (4.5-7.5) 05/04/19 13:12 Ur Specific [place] 1.020 (1.000-1.030) 05/04/19 13:12 Urine Protein 3+ (Negative) H 05/04/19 13:12 Urine Glucose (UA) Negative (Negative) 05/04/19 13:12 Urine Ketones Negative (Negative) 05/04/19 13:12 Urine Blood 3+ (Negative) H 05/04/19 13:12 Urine Nitrite Negative (Negative) 05/04/19 13:12 Urine Bilirubin Negative (Negative) 05/04/19 13:12 Urine Urobilinogen Negative (Negative) 05/04/19 13:12 Ur Leukocyte Esterase Trace (Negative) H 05/04/19 13:12 Urine RBC >30 /hpf (0-4) H 05/04/19 13:12 Urine WBC >30 /hpf (0-5) H 05/04/19 13:12 Ur Epithelial Cells 0-5 /lpf (0-5) 05/04/19 13:12 Urine Bacteria 1+ (Negative) H 05/04/19 13:12 PG Care Time/CCT Total # of Minutes Spent Total Time Spent with Patient: Total time spent is greater than 50% in coordination of care (as documented) at patient's floor/unit and/or counseling patient: Resident Activity Tracking Resident Involvement: Resident Care Provided Care Provided: Adult Hospital Medicine (1) Hematuria Hematuria type: unspecified type Qualified Code(s): R31.9 - Hematuria, unspecified (2) Abdominal pain Abdominal location: unspecified location Qualified Code(s): R10.9 - Unspecified abdominal pain
--- NOTE | 2019-05-05 12:26 | Urology Progress Note ---
Date of Service May 05, 2019 Assessment & Plan (1) Infected penile implant: 68 YO male POD #7 s/p bladder exploration and removal of infected penile prosthesis, admitted to the hospital for uncontrolled pain and suspected infection. Exam findings discussed with Dr. Luu. No areas of drainable fluid collection noted on exam today. No acute surgical intervention now, okay to provide diet. Maintain 18F Langford with gentle hand irrigation with sterile water PRN. Will try to avoid Langford manipulation or replacement due to bladder exploration. Continue antibiotics per primary team. Will continue to closely follow. Please page our service if Langford occlusion or difficulty. Subjective 68 YO male POD #7 s/p bladder exploration and removal of infected penile prosthesis, admitted to the hospital for uncontrolled pain and suspected infection. He remains on supportive medication and Zosyn. CT scan Pelvis was completed in the ER yesterday and reviewed with Dr. Luu who advised admission for observation. Patient reports feeling okay today. Pain controlled with medication. Primary source of pain is bladder spasm. Hematuria is persisting in Langford, which is patent. Patient also reports intermittent bleeding around his Langford. No fevers/chills. No nausea/vomiting. Chart is reviewed. Review of Systems Review of Systems: Per HPI. Physical Exam Physical Exam: NAD. Resp effort normal. No JVD. Abd soft, nontender. Abdominal incision: well approximated, without gross evidence of infection, misti intact. : scrotal incision well approximated without gross evidence of infection, no drainage; scrotal drain site remains open without drainage; phallus+diffuse edema, +firm inflammation surrounding base of penis without redness or evidence of drainable fluid; bilateral testicles grossly normal; perineum and rectum normal to inspection; Langford patent draining light red urine +intermittent clot. A&Ox3, appropriate affect. Results & Data Vital Signs (Past 12 Hours) Vital Signs Temp Pulse Resp BP Pulse Ox 05/05/19 11:11 36.6 C 81 18 113/73 100 05/05/19 08:00 36.8 C 76 18 109/62 98 05/05/19 03:37 36.5 C 88 18 131/69 96 (1) Infected penile implant Encounter type: initial encounter Qualified Code(s): T83.61XA - Infection and inflammatory reaction due to implanted penile prosthesis, initial encounter
[2019-05-05] MEDS ORDERED: Nursing to Pharmacy Communication ONE (20:23)
[2019-05-05] MEDS: ATORVASTATIN 40 MG TAB PO SCH (21:11)
[2019-05-06] MEDS: OXYCODONE/APAP 7.5/325MG TAB PO PRN ×2 (00:34→19:39)
[2019-05-06] MEDS: VANCOMYCIN HCL 1,500 MG in SODIUM CHLORIDE 0.9% 500 ML IV SCH ×2 (02:53→15:35)
[2019-05-06] MEDS: LEVOTHYROXINE SODIUM 100 MCG TABLET PO SCH (06:35)
[2019-05-06] MEDS: AZTREONAM 1,000 MG in DEXTROSE 5% 100 ML IV SCH ×3 (06:37→21:11)
[2019-05-06 07:15] LABS: Creatinine Clr Calc Pharmacy 88.2 ml/min; Est GFR (African American) 102.8; Est GFR (Non-African American) 88.7
[2019-05-06] MEDS: DOCUSATE SODIUM 100 MG CAP PO SCH ×2 (08:25→20:35)
[2019-05-06] MEDS: LACTOBACILLUS ACIDOPHILUS 1 GM PACK PO SCH ×3 (08:25→16:19)
[2019-05-06] MEDS: METOPROLOL SUCC 25MG EXT REL TAB PO SCH ×2 (08:25→20:35)
[2019-05-06] MEDS: MAGNESIUM OXIDE 400 MG TAB PO SCH ×2 (08:25→20:35)
[2019-05-06] MEDS: OXYBUTYNIN CHLORIDE 5 MG TAB PO PRN (08:25)
[2019-05-06] MEDS: ASCORBIC ACID 500 MG TAB PO SCH ×2 (08:26→20:35)
[2019-05-06] MEDS: SACUBITRIL-VALSARTAN 49/51 MG TAB PO SCH ×2 (08:27→20:35)
[2019-05-06] MEDS: INSULIN ASPART 100 UNITS/ML 3 ML PEN SC SCH ×4 (08:36→21:02)
[2019-05-06 09:04] LABS: Hematocrit (blood only) 25.2 % (42-52); Hemoglobin 7.6 g/dL (14.0-18.0); Mean Corpuscular Hemoglobin 23.9 pg (25-34); Mean Corpuscular Hgb Conc 30.2 g/dL (32-36); Mean Corpuscular Volume 79.2 fL (80-100); Mean Platelet Volume 8.9 fL (7.4-10.4); Platelet Count 310 K/uL (130-400); RDW Coefficient of Variation 17.3 % (11.5-14.5); Red Blood Count 3.18 M/uL (4.7-6.1); White Blood Count 6.56 K/uL (4.8-10.8)
[2019-05-06 09:09] LABS: BUN Creatinine Ratio 14.9 (10-20); Calcium 8.2 mg/dl (8.5-10.1); Creatinine Clr Calc Pharmacy 91.2 ml/min; Est GFR (African American) 104.2; Est GFR (Non-African American) 89.9; Potassium 4.3 mmol/L (3.5-5.1)
[2019-05-06] MEDS: ASPIRIN 81 MG ECTAB PO SCH (09:27)
[2019-05-06] MEDS: SODIUM CHLORIDE 0.9% 1000ML 1,000 ML IV SCH (11:24)
--- NOTE | 2019-05-06 11:39 | Family Medicine Progress Note ---
Date of Service May 06, 2019 Assessment & Plan (1) Complication of implanted penile prosthesis: - Per Urology note: - no acute surgical intervention at this time - maintain xiong with gentle irrigation - no areas of fluid collection on exam - Pt given Aztreonam and Vanco in ED to cover for infection. - culture from removal of prosthesis on 04/28 grew Coag neg staph [likely staph epidermidis; can be treated with penicillins] - UA showed 1+ bacteria, trace LE, 30+ WBC - urine culture from 05/04 shows no growth - Pelvic CT showed soft tissue infiltration and bladder wall thickening likely indicative of chronic bladder outlet obstruction by bloody clots (2) Hematuria: 2/2 Eliquis and ASA use vs. Traumatic prosthetic removal causing urethral injury seen on CT - should decrease while holding anticoagulants - will monitor H&H in interim - Hg down to 7.6 today from 8.0 yesterday. Hg was 15 in may of 2018, was 9.9 on 04/15/2019. (3) Chronic atrial fibrillation: Anti-Coagulation - Eliquis held due to hematuria Anti-Platelet therapy - hx cardiac stents - consider starting ASA 81mg daily to provide anti-platelet protection given that patient had a cardiac stent placed in august of this year. (4) Abdominal pain: - likely secondary to irritation of bladder wall as seen on CT - high degree of granulation tissue at sites of incision on CT - currently controlled at rest, abdominal pain returns when patient has the urge to urinate Supervising Physician Co-Signing Physician Notes I personally examined the patient and verified all bledsoe points of history and exam, discussed case, and agree with decision making with Dr Harrington. Pain improving significantly, only a little bit at the tail end of voiding. Hematuria has cleared. Vitals noted, in general he is awake and alert no distress. HEENT normal cephalic atraumatic mucous membranes moist. Breathing unlabored no accessory muscle use good effort. Skin shows no rashes no pallor or icterus. 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 Fortunately no need for imminent surgery per urology, continue Xiong per urology. Hematuriarelated to infection. Has cleared, have cautiously resumed aspirin today, hopefully build to resume Eliquis in the near future. Coronary artery diseaseresumed aspirin today. While ideally given that his stenting was just in August, we would have him back on dual antiplatelets, his rather significant hematuria (severe enough to cause a blood loss anemia) makes it that at least having a single antiplatelet may be the best balance of risk and benefit. Acute blood loss anemiarelated to hematuria. Continue to follow closely, but appears to have cleared. Sara gonzalesfe to briefly be off of anticoagulation given the risk and benefit of his gross hematuria, but obviously want to resume it ENEDINA as well, possibly in the next 1 to 2 days of his urine stays clear. Subjective Mr. Otero is doing well today. He is complaining of less pain with urination today and has no pain at rest. He is anxious to get home. Review of Systems Constitutional: no fever, no chills and no sweats Respiratory: no cough, no dyspnea and no pain with cough Cardiovascular: no chest pain, no lightheadedness and no edema Gastrointestinal: no abdominal pain, no bloating and no vomiting Genitourinary: + dysuria; no difficulty urinating, no urinary incontinence and no genital pain Physical Exam Constitutional: well developed, well nourished and + overweight Respiratory: normal respiratory effort; no respiratory distress Auscultation: lungs clear to auscultation bilaterally; no crackles and no wheezes Cardiovascular: RRR, no murmur, no edema Gastrointestinal (Abdomen): Inspection/Auscultation: abdomen normal to inspection; abdomen not distended Percussion/Palpation: abdomen soft; abdomen nontender and no guarding Genitourinary: Urinary catheter still in place. Hematuria still present. Results & Data Vital Signs (Past 12 Hours) Vital Signs Temp Pulse Resp BP Pulse Ox 05/06/19 07:35 36.6 C 94 H 20 125/68 92 05/05/19 23:48 36.6 C 90 18 97/51 L 99 Laboratory Results WBC 6.56 K/uL (4.8-10.8) 05/06/19 06:14 RBC 3.18 M/uL (4.7-6.1) L 05/06/19 06:14 Hgb 7.6 g/dL (14.0-18.0) L 05/06/19 06:14 POC Hgb 9.9 g/dl (14.0-18.0) L 05/04/19 13:28 Hct 25.2 % (42-52) L 05/06/19 06:14 POC Hct 29 % (42-52) L 05/04/19 13:28 MCV 79.2 fL (80-100) L 05/06/19 06:14 MCH 23.9 pg (25-34) L 05/06/19 06:14 MCHC 30.2 g/dL (32-36) L 05/06/19 06:14 RDW Std Deviation 50.0 fL (36.4-46.3) H 05/06/19 06:14 RDW Coeff of Wilfredo 17.3 % (11.5-14.5) H 05/06/19 06:14 Plt Count 310 K/uL (130-400) 05/06/19 06:14 MPV 8.9 fL (7.4-10.4) 05/06/19 06:14 POC Sodium 134 mEq/L (135-144) L 05/04/19 13:28 Sodium 139 mmol/L (136-145) 05/06/19 06:14 POC Potassium 5.2 mEq/L (3.3-5.0) H 05/04/19 13:28 Potassium 4.3 mmol/L (3.5-5.1) 05/06/19 06:14 POC Chloride 101 mEq/L (101-112) 05/04/19 13:28 Chloride 109 mmol/L (98-107) H 05/06/19 06:14 Carbon Dioxide 23 mmol/L (21-32) 05/06/19 06:14 POC Total CO2 23 mEq/l (24-31) L 05/04/19 13:28 Anion Gap 7.0 (3-11) 05/06/19 06:14 POC Anion Gap 17.0 mmol/L (16-25) 05/04/19 13:28 POC BUN 13 mg/dl (7-18) 05/04/19 13:28 BUN 13 mg/dl (7-18) 05/06/19 06:14 Creatinine 0.87 mg/dl (0.6-1.4) 05/06/19 06:14 POC Creatinine 1.2 mg/dl (0.6-1.3) 05/04/19 13:28 Est Cr Clr Drug Dosing 91.2 ml/min 05/06/19 06:14 Est GFR ( Amer) 104.2 05/06/19 06:14 Est GFR (Non-Af Amer) 89.9 05/06/19 06:14 BUN/Creatinine Ratio 14.9 (10-20) 05/06/19 06:14 Glucose 99 mg/dl (70-99) 05/06/19 06:14 POC Glucose 134 (70-99) H 05/06/19 11:27 POC Glucose (other) 124 mg/dl (70-99) H 05/04/19 13:28 Estimat Average Glucose 137 mg/dl 05/05/19 06:13 Hemoglobin A1c 6.4 % (4.5-5.6) H 05/05/19 06:13 Calcium 8.2 mg/dl (8.5-10.1) L 05/06/19 06:14 POC Ioniz Calcium Elroy 1.15 mmol/l (1.12-1.32) 05/04/19 13:28 Urine Color Red 05/04/19 13:12 Urine Appearance Turbid (Clear) A 05/04/19 13:12 Urine pH 7.5 (4.5-7.5) 05/04/19 13:12 Ur Specific Adams 1.020 (1.000-1.030) 05/04/19 13:12 Urine Protein 3+ (Negative) H 05/04/19 13:12 Urine Glucose (UA) Negative (Negative) 05/04/19 13:12 Urine Ketones Negative (Negative) 05/04/19 13:12 Urine Blood 3+ (Negative) H 05/04/19 13:12 Urine Nitrite Negative (Negative) 05/04/19 13:12 Urine Bilirubin Negative (Negative) 05/04/19 13:12 Urine Urobilinogen Negative (Negative) 05/04/19 13:12 Ur Leukocyte Esterase Trace (Negative) H 05/04/19 13:12 Urine RBC >30 /hpf (0-4) H 05/04/19 13:12 Urine WBC >30 /hpf (0-5) H 05/04/19 13:12 Ur Epithelial Cells 0-5 /lpf (0-5) 05/04/19 13:12 Urine Bacteria 1+ (Negative) H 05/04/19 13:12 PG Care Time/CCT Total # of Minutes Spent Total Time Spent with Patient: Total time spent is greater than 50% in coordination of care (as documented) at patient's floor/unit and/or counseling patient: Resident Activity Tracking Resident Involvement: Resident Care Provided Care Provided: Adult Hospital Medicine (1) Hematuria Hematuria type: unspecified type Qualified Code(s): R31.9 - Hematuria, unspecified (2) Abdominal pain Abdominal location: unspecified location Qualified Code(s): R10.9 - Unspecified abdominal pain
[2019-05-06] MEDS ORDERED: VANCOMYCIN TROUGH ONE (13:30)
--- NOTE | 2019-05-06 14:45 | Pharmacy Report ---
Pharmacy Abx Dose Short Note - Date of Service May 06, 2019 - Assessment & Plan Laboratory Tests 05/06/19 13:36 Vancomycin Trough 18.8 Assessment 68 year old M receiving IV Vancomycin and aztreonam for treatment of infection s/p penile prosthesis Day # 4 of antimicrobial therapy. Renal function stable. Plan Vancomycin * Trough level of 18.8 mcg/mL is therapeutic * Continue dose of 1500 mg IV every 12 hours * Goal trough level : 15 to 20 mcg/mL * Trough level ordered for: 05/08/19 to ensure safe effective dosing Pharmacy will continue to follow and will adjust dose/frequency as necessary. Thank you.
[2019-05-06] MEDS: MAGNESIUM SULFATE / D5W 1 GM/100 ML BAG IV SCH ×2 (15:35→16:41)
--- NOTE | 2019-05-06 17:37 | Urology Progress Note ---
Date of Service May 06, 2019 Assessment & Plan (1) Abdominal pain: (2) Hematuria: (3) Infected penile implant: 68-year-old male postoperative day #8 status post explantation of infected penile prosthesis now with improved pain and hematuria. I suspect some trauma to the patient's intravesical suture line as the cause of his discomfort and difficulties. Can continue on previous antibiotic regimen. Outpatient cystogram to evaluate for healing with subsequent trial of void as planned. I suspect the patient should be stable for discharge home tomorrow morning with resumption of the previous plan. Worrisome signs and symptoms are reviewed. Patient remains in good spirits as always and vocalizes good understanding of the treatment plan. Subjective 68-year-old male who is postoperative day #8 status post explantation of inf ected penile prosthesis, admitted with lower abdominal pain, hematuria and suspected urinary tract infection. Patient's urine culture is returned as negative for new growth and patient reports that he feels significantly better. His hematuria has resolved and he notes that no further clots are passing. He reports his lower abdominal pain and bladder spasms have resolved. He now recalls that he moved a cigarette stamper the day prior to all of his new acute difficulties and feels he may have torn some of the sutures in his bladder. This is not an unreasonable opinion. He is taking p.o. diet without difficulties and is feeling much improved. Review of Systems Constitutional: no fever and no chills Eyes: no diplopia Ear, Nose, Mouth, Throat: no ear trauma Respiratory: no hemoptysis Cardiovascular: no chest pain Integumentary: no acne and no boil Neurologic: no paralysis Psychiatric: no hopelessness Allergy / Immunological: no tongue swelling Physical Exam Constitutional: well developed and well nourished; no acute distress Eyes: eyes not dysmorphic ENMT: Ears: no external ear abnormality Neck: trachea midline; no anterior neck swelling Respiratory: no respiratory distress and does not use accessory muscles Cardiovascular: Vessels: radial pulses present Gastrointestinal (Abdomen): Inspection/Auscultation: abdomen not distended Percussion/Palpation: abdomen soft; abdomen nontender Incision clean dry and intact with misti Musculoskeletal: Head/Neck/Chest: normocephalic and neck supple Skin: normal turgor Neurologic: awake; not obtunded Psychiatric: Orientation: oriented x 3 Genitourinary: Minimal ecchymosis with incision clean dry and intact without purulence, drainage or evidence of cellulitis Lymphatic: no lymphadenopathy Results & Data Vital Signs (Past 12 Hours) Vital Signs Temp Pulse Resp BP Pulse Ox 05/06/19 15:17 37.0 C 77 20 106/62 97 05/06/19 07:35 36.6 C 94 H 20 125/68 92 Laboratory Results Laboratory Results - last 48 hr 05/04/19 05/05/19 05/05/19 20:24 06:11 06:13 WBC 8.13 RBC 3.25 L Hgb 8.0 L Hct 25.9 L MCV 79.7 L MCH 24.6 L MCHC 30.9 L RDW Std Deviation 50.8 H RDW Coeff of Wilfredo 17.4 H Plt Count 341 MPV 8.7 Sodium Potassium Chloride Carbon Dioxide Anion Gap BUN Creatinine Est Cr Clr Drug Dosing Est GFR ( Amer) Est GFR (Non-Af Amer) BUN/Creatinine Ratio Glucose POC Glucose 99 Estimat Average Glucose 137 Hemoglobin A1c 6.4 H Calcium Vancomycin Trough 05/05/19 05/05/19 05/05/19 06:13 06:20 11:43 WBC RBC Hgb Hct MCV MCH MCHC RDW Std Deviation RDW Coeff of Wilfredo Plt Count MPV Sodium Potassium Chloride Carbon Dioxide Anion Gap BUN Creatinine 0.90 Est Cr Clr Drug Dosing 88.2 Est GFR ( Amer) 102.8 Est GFR (Non-Af Amer) 88.7 BUN/Creatinine Ratio Glucose POC Glucose 121 H 124 H Estimat Average Glucose Hemoglobin A1c Calcium Vancomycin Trough 05/05/19 05/05/19 05/06/19 16:11 20:20 06:13 WBC RBC Hgb Hct MCV MCH MCHC RDW Std Deviation RDW Coeff of Wilfredo Plt Count MPV Sodium Potassium Chloride Carbon Dioxide Anion Gap BUN Creatinine 0.90 Est Cr Clr Drug Dosing 88.2 Est GFR ( Amer) 102.8 Est GFR (Non-Af Amer) 88.7 BUN/Creatinine Ratio Glucose POC Glucose 127 H 133 H Estimat Average Glucose Hemoglobin A1c Calcium Vancomycin Trough 05/06/19 05/06/19 05/06/19 06:14 06:14 08:34 WBC 6.56 RBC 3.18 L Hgb 7.6 L Hct 25.2 L MCV 79.2 L MCH 23.9 L MCHC 30.2 L RDW Std Deviation 50.0 H RDW Coeff of Wilfredo 17.3 H Plt Count 310 MPV 8.9 Sodium 139 Potassium 4.3 Chloride 109 H Carbon Dioxide 23 Anion Gap 7.0 BUN 13 Creatinine 0.87 Est Cr Clr Drug Dosing 91.2 Est GFR ( Amer) 104.2 Est GFR (Non-Af Amer) 89.9 BUN/Creatinine Ratio 14.9 Glucose 99 POC Glucose 125 H Estimat Average Glucose Hemoglobin A1c Calcium 8.2 L Vancomycin Trough 05/06/19 05/06/19 05/06/19 11:27 13:36 16:32 WBC RBC Hgb Hct MCV MCH MCHC RDW Std Deviation RDW Coeff of Wilfredo Plt Count MPV Sodium Potassium Chloride Carbon Dioxide Anion Gap BUN Creatinine Est Cr Clr Drug Dosing Est GFR ( Amer) Est GFR (Non-Af Amer) BUN/Creatinine Ratio Glucose POC Glucose 134 H 116 H Estimat Average Glucose Hemoglobin A1c Calcium Vancomycin Trough 18.8 PG Care Time/CCT Total # of Minutes Spent Total Time Spent with Patient: Total time spent is greater than 50% in coordination of care (as documented) at patient's floor/unit and/or counseling patient: (1) Abdominal pain Abdominal location: unspecified location Qualified Code(s): R10.9 - Unspecified abdominal pain (2) Hematuria Hematuria type: unspecified type Qualified Code(s): R31.9 - Hematuria, u nspecified (3) Infected penile implant Encounter type: initial encounter Qualified Code(s): T83.61XA - Infection and inflammatory reaction due to implanted penile prosthesis, initial encounter
[2019-05-06] MEDS ORDERED: CALCIUM CITRATE 950 MG TAB PO SCH (18:00)
[2019-05-06] MEDS: ATORVASTATIN 40 MG TAB PO SCH (20:35)
[2019-05-06] MEDS: ZOLPIDEM TARTRATE 5 MG TAB PO PRN (22:01)
[2019-05-07] MEDS: VANCOMYCIN HCL 1,500 MG in SODIUM CHLORIDE 0.9% 500 ML IV SCH (02:18)
[2019-05-07] MEDS: LEVOTHYROXINE SODIUM 100 MCG TABLET PO SCH (06:41)
[2019-05-07] MEDS: AZTREONAM 1,000 MG in DEXTROSE 5% 100 ML IV SCH (06:41)
[2019-05-07 08:06] LABS: Basophils # (auto) 0.01 K/uL (0-0.2); Basophils % (auto) 0.1 %; Eosinophils # (auto) 0.19 K/uL (0-0.5); Eosinophils % (auto) 2.3 %; Hematocrit (blood only) 24.3 % (42-52); Hemoglobin 7.3 g/dL (14.0-18.0); Immature Granulocytes # (auto) 0.02 K/uL (0.00-0.02); Immature Granulocytes % (auto) 0.2 %; Lymphocytes # (auto) 0.88 K/uL (1.2-3.4); Lymphocytes % (auto) 10.5 %; Mean Corpuscular Hemoglobin 23.7 pg (25-34); Mean Corpuscular Volume 78.9 fL (80-100); Mean Platelet Volume 8.7 fL (7.4-10.4); Monocytes # (auto) 0.73 K/uL (0.11-0.59); Monocytes % (auto) 8.7 %; Neutrophils # (auto) 6.57 K/uL (1.4-6.5); Neutrophils % (auto) 78.2 %; Platelet Count 281 K/uL (130-400); RDW Coefficient of Variation 17.5 % (11.5-14.5); RDW Standard Deviation 50.5 fL (36.4-46.3); Red Blood Count 3.08 M/uL (4.7-6.1)
[2019-05-07 08:24] LABS: Ovalocytes 1+; Polychromasia 1+
[2019-05-07 08:34] LABS: Creatinine Clr Calc Pharmacy 90.2 ml/min; Est GFR (African American) 103.7; Est GFR (Non-African American) 89.5
[2019-05-07] MEDS: DOCUSATE SODIUM 100 MG CAP PO SCH (09:01)
[2019-05-07] MEDS: ASPIRIN 81 MG ECTAB PO SCH (09:02)
[2019-05-07] MEDS: METOPROLOL SUCC 25MG EXT REL TAB PO SCH (09:02)
[2019-05-07] MEDS: ASCORBIC ACID 500 MG TAB PO SCH (09:02)
[2019-05-07] MEDS: LACTOBACILLUS ACIDOPHILUS 1 GM PACK PO SCH ×2 (09:02→12:27)
[2019-05-07] MEDS: SACUBITRIL-VALSARTAN 49/51 MG TAB PO SCH (09:02)
[2019-05-07] MEDS: INSULIN ASPART 100 UNITS/ML 3 ML PEN SC SCH ×2 (09:03→12:26)
[2019-05-07] MEDS: MAGNESIUM OXIDE 400 MG TAB PO SCH (09:03)
--- NOTE | 2019-05-07 10:15 | Urology Progress Note ---
Date of Service May 07, 2019 Assessment & Plan (1) Abdominal pain: (2) Hematuria: (3) Infected penile implant: 68-year-old male postoperative day #9 status post explantation of infected penile prosthesis now with improved pain and hematuria. Doing well. Stable for discharge home from a perspective. Patient has antibiotics at home to continue. Will follow-up for cystogram and trial of void as scheduled. Worrisome signs and symptoms reviewed. Subjective 68-year-old male who is postoperative day #9 status post explantation of infected penile prosthesis, admitted with lower abdominal pain, hematuria and suspected urinary tract infection. He remains improved from previously with no recurrent hematuria, bladder spasms or pain. His interval notes are reviewed. He denies other complaints at this time and feels ready to go home. Review of Systems Constitutional: no fever and no chills Eyes: no diplopia Ear, Nose, Mouth, Throat: no ear trauma Respiratory: no hemoptysis Cardiovascular: no chest pain Integumentary: no acne and no boil Neurologic: no paralysis Psychiatric: no hopelessness Allergy / Immunological: no tongue swelling Physical Exam Constitutional: well developed and well nourished; no acute distress Eyes: eyes not dysmorphic ENMT: Ears: no external ear abnormality Neck: trachea midline; no anterior neck swelling Respiratory: no respiratory distress and does not use accessory muscles Cardiovascular: Vessels: radial pulses present Gastrointestinal (Abdomen): Inspection/Auscultation: abdomen not distended Percussion/Palpation: abdomen soft; abdomen nontender Incision clean dry and intact with misti Musculoskeletal: Head/Neck/Chest: normocephalic and neck supple Skin: normal turgor Neurologic: awake; not obtunded Psychiatric: Orientation: oriented x 3 Genitourinary: + external ecchymosis and + edematous penis Expected changes without evidence of infection. Incisions clean dry and intact. Lymphatic: no lymphadenopathy Results & Data Vital Signs (Past 12 Hours) Vital Signs Temp Pulse Resp BP Pulse Ox 05/07/19 07:17 36.3 C L 88 18 110/65 98 05/06/19 22:23 37.0 C 73 18 103/61 98 Laboratory Results Laboratory Results - last 48 hr 05/05/19 05/05/19 05/05/19 11:43 16:11 20:20 WBC RBC Hgb Hct MCV MCH MCHC RDW Std Deviation RDW Coeff of Wilfredo Plt Count MPV Immature Gran % (Auto) Neut % (Auto) Lymph % (Auto) [place] % (Auto) Eos % (Auto) Baso % (Auto) Immature Gran # (Auto) Neut # (Auto) Lymph # (Auto) Will[place] # (Auto) Eos # (Auto) Baso # (Auto) Polychromasia Ovalocytes Sodium Potassium Chloride Carbon Dioxide Anion Gap BUN Creatinine Est Cr Clr Drug Dosing Est GFR ( Amer) Est GFR (Non-Af Amer) BUN/Creatinine Ratio Glucose POC Glucose 124 H 127 H 133 H Calcium Vancomycin Trough 05/06/19 05/06/19 05/06/19 06:13 06:14 06:14 WBC 6.56 RBC 3.18 L Hgb 7.6 L Hct 25.2 L MCV 79.2 L MCH 23.9 L MCHC 30.2 L RDW Std Deviation 50.0 H RDW Coeff of Wilfredo 17.3 H Plt Count 310 MPV 8.9 Immature Gran % (Auto) Neut % (Auto) Lymph % (Auto) [place] % (Auto) Eos % (Auto) Baso % (Auto) Immature Gran # (Auto) Neut # (Auto) Lymph # (Auto) Will[place] # (Auto) Eos # (Auto) Baso # (Auto) Polychromasia Ovalocytes Sodium 139 Potassium 4.3 Chloride 109 H Carbon Dioxide 23 Anion Gap 7.0 BUN 13 Creatinine 0.90 0.87 Est Cr Clr Drug Dosing 88.2 91.2 Est GFR ( Amer) 102.8 104.2 Est GFR (Non-Af Amer) 88.7 89.9 BUN/Creatinine Ratio 14.9 Glucose 99 POC Glucose Calcium 8.2 L Vancomycin Trough 05/06/19 05/06/19 05/06/19 08:34 11:27 13:36 WBC RBC Hgb Hct MCV MCH MCHC RDW Std Deviation RDW Coeff of Wilfredo Plt Count MPV Immature Gran % (Auto) Neut % (Auto) Lymph % (Auto) [place] % (Auto) Eos % (Auto) Baso % (Auto) Immature Gran # (Auto) Neut # (Auto) Lymph # (Auto) [place] # (Auto) Eos # (Auto) Baso # (Auto) Polychromasia Ovalocytes Sodium Potassium Chloride Carbon Dioxide Anion Gap BUN Creatinine Est Cr Clr Drug Dosing Est GFR ( Amer) Est GFR (Non-Af Amer) BUN/Creatinine Ratio Glucose POC Glucose 125 H 134 H Calcium Vancomycin Trough 18.8 05/06/19 05/06/19 05/07/19 16:32 20:14 07:24 WBC RBC Hgb Hct MCV MCH MCHC RDW Std Deviation RDW Coeff of Wilfredo Plt Count MPV Immature Gran % (Auto) Neut % (Auto) Lymph % (Auto) [place] % (Auto) Eos % (Auto) Baso % (Auto) Immature Gran # (Auto) Neut # (Auto) Lymph # (Auto) [place] # (Auto) Eos # (Auto) Baso # (Auto) Polychromasia Ovalocytes Sodium Potassium Chloride Carbon Dioxide Anion Gap BUN Creatinine 0.88 Est Cr Clr Drug Dosing 90.2 Est GFR ( Amer) 103.7 Est GFR (Non-Af Amer) 89.5 BUN/Creatinine Ratio Glucose POC Glucose 116 H 128 H Calcium Vancomycin Trough 05/07/19 05/07/19 07:24 07:48 WBC 8.40 RBC 3.08 L Hgb 7.3 L Hct 24.3 L MCV 78.9 L MCH 23.7 L MCHC 30.0 L RDW Std Deviation 50.5 H RDW Coeff of Wilfredo 17.5 H Plt Count 281 MPV 8.7 Immature Gran % (Auto) 0.2 Neut % (Auto) 78.2 Lymph % (Auto) 10.5 [place] % (Auto) 8.7 Eos % (Auto) 2.3 Baso % (Auto) 0.1 Immature Gran # (Auto) 0.02 Neut # (Auto) 6.57 H Lymph # (Auto) 0.88 L [place] # (Auto) 0.73 H Eos # (Auto) 0.19 Baso # (Auto) 0.01 Polychromasia 1+ Ovalocytes 1+ Sodium Potassium Chloride Carbon Dioxide Anion Gap BUN Creatinine Est Cr Clr Drug Dosing Est GFR ( Amer) Est GFR (Non-Af Amer) BUN/Creatinine Ratio Glucose POC Glucose 163 H Calcium Vancomycin Trough PG Care Time/CCT Total # of Minutes Spent Total Time Spent with Patient: Total time spent is greater than 50% in coordination of care (as documented) at patient's floor/unit and/or counseling patient: (1) Abdominal pain Abdominal location: unspecified location Qualified Code(s): R10.9 - Unspecified abdominal pain (2) Hematuria Hematuria type: unspecified type Qualified Code(s): R31.9 - Hematuria, unspe cified (3) Infected penile implant Encounter type: initial encounter Qualified Code(s): T83.61XA - Infection and inflammatory reaction due to implanted penile prosthesis, initial encounter
--- NOTE | 2019-05-07 10:31 | Discharge Summary ---
Date of Service May 07, 2019 Admission HPI Per Admitting Provider 68 patient requests this type II on metformin, dyslipidemia, essential, and obesity, patient has erectile dysfunction status post an implant that was placed from -2009 after that the implant had a malfunction, from 2009 until 2017 patient did not pursue any medical attention, and an 27 [address] another implant. After placing this implant he continued to have urinary tract infections from October 2018 until 2 weeks prior to admission where he had a cystoscopy and it found that the reservoir has eroded into the urinary bladder. On 04/29/2019 patient had an open bladder exploration with explantation of the infected penile prosthesis, Langford catheter was placed at that time. Patient was discharged on doxycycline oral. Since then patient started having lower abdominal pain, hematuria, intermittently urine comes around the Langford, also having generalized fatigue and chills. Admission Exam Per Admitting Provider Physical examination General average built, appears to be in moderate acute distress HEENT: Atraumatic , normocephalic /no jaundice /no pallor /anicteric /no dry mucous membrane /normal external ear inspection Neck: Supple /no swelling /central trach Heart: S1/S2 normal/regular rate and rhythm/no gallop /no rub /no murmur Lungs: Clear to auscultation bilaterally/normal chest with expansion/no rhonchi/no rales/no wheezing/no use of accessory muscles of respiration Abdomen: Lower abdomen his median incision that appears to be clean, patient does have tenderness in his lower abdominal area, erythematous scrotum with Langford catheter coming out with blood hematuria in the Langford catheter site, no pulsatile mass Musculoskeletal: No swelling/no edema/no tenderness/normal range of motion Neuro exam: Awake alert oriented 3/cranial nerves II through XII appear to be intact/sensation intact/moves all extremities/no abnormal movements Psychiatric evaluation: No depressed mood/normal affect Skin: No rash on exposed skin area/no erythema Extremity: Normal pulse/no pitting edema/no clubbing or cyanosis Principal Diagnosis cellulitis, hematuria Discharge Exam Constitutional well developed, well nourished, cooperative, comfortable and + overweight Respiratory normal respiratory effort; no respiratory distress and no labored breathing Auscultation: lungs clear to auscultation bilaterally; no crackles, no rales and no wheezes Cardiovascular RRR, no murmur, no edema Rate/Rhythm: regular rate and + irregularly irregular Gastrointestinal (Abdomen) Inspection/Auscultation: abdomen normal to inspection; abdomen not distended Percussion/Palpation: abdomen soft; abdomen nontender and no guarding Genitourinary no CVA tenderness Hematuria no longer present. Catheter still in place. Discharge Data Allergies Allergy/AdvReac Type Severity Reaction Status Date / Time cefadroxil [From Duricef] Allergy Unknown lips Verified 05/04/19 13:50 swelling Consultations 05/04/19 15:54 ED Decision to Admit Stat 05/04/19 17:19 Consult Urology Routine Ordered Studies 05/04/19 14:09 CT pelvis wo/w con Stat Hospital Course (1) Complication of implanted penile prosthesis: Mr. Ramirez has had an extensive course of issues with his penile prosthesis which ultimately led to it being removed on April 29 by urology. Some days after its removal, the patient lifted a very heavy portable watch parts grinder at home the day before experiencing hematuria and abdominal pain which brought him to the emergency department. Urology was consulted and they decided that no acute surgical intervention was necessary at this time. The patient was given aztreonam and vancomycin in the ED to cover for infection. We continued this in the hospital. Urinalysis showed 30+ white blood cells 1+ bacteria and trace leukocyte esterase. Urine culture from May 04 showed no growth however we opted to finish out the antibiotic coverage given the location of infection and likelihood of breeding resistance. CT of the pelvis showed a soft tissue infiltration and bladder wall thickening likely indicative of chronic bladder outlet obstruction by bloody clots. As patient's stay progressed bloody clots and hematuria eventually decreased and subsided, as did his pain with urination. In regards to the patient's anticoagulation status Eliquis was held during his hospital stay as he was actively experiencing hematuria. Given his cardiac stent procedure in August of this year we were hesitant to hold both Plavix and aspirin and so he received aspirin 81 mg daily as antiplatelet precaution. Given the likelihood of bleeding and hemodynamic instability we monitored his monitored his H&H which stayed relatively stable and the lowest it dropped to was 7.3. At discharge patient was already provided with a follow-up with urology for a cystoscopy to ensure proper resolution of his genitourinary issues. All other chronic medical conditions were controlled using home medication regimens unless otherwise stated. Patient was instructed at discharge to restart his Eliquis until told to stop prior to his ablation procedure for cardiology. He was also instructed to continue taking the daily aspirin unless cardiology, urology, or his PCP told him otherwise or he experienced hematuria once again that was not resolving. He was also advised to start taking an iron supplement given his loss of blood in the hospital. (2) Hematuria: (3) Chronic atrial fibrillation: (4) Abdominal pain: Total Time Total Time Spent Total Time Spent (In Minutes): <30 Discharge Plan Discharge Items Patient Disposition: Home - Self-Care Reason For Visit: PENILE INFECTION Discharge Diagnosis: Hematuria, Penile infection s/p prosthesis removal Activity: Per Instructions section Non-emergency contact: Primary Care Provider, Valet and Urologist Call non-emergency contact if: you have any medication questions, your symptoms worsen and your temperature is above 101 Follow-up/Referrals: Germain Hatfield [Primary Care Provider] - Diet: Regular Addtl Attending Provider Instructions: You were admitted to the hospital due to severe pain with urination and bloody urine after having your penile prosthesis removed last week. The urology team saw you in the hospital and determined that at this time surgical intervention would not be beneficial, and that the catheter should remain in place for now. Given that the prosthesis was removed for concern of infection, we started you on Vancomycin and Aztreonam antibiotics to help prevent worsening or spread of the infection. We converted these to oral antibiotics Doxycycline 100 twice a day and Augmentin 875 mg twice a day that you will need to continue for 7 days after leaving the hospital to ensure completion of the course and no continuation of the infection. In regards to your blood thinners, restart your Eliquis tomorrow and stop it next Thursday as instructed by Cardiology. If you have any repeated episodes of bloody urine contact your animal ride attendant. Continue taking your aspirin daily to protect your heart stents from re-clotting. Contact your Valet about when to restart your Plavix. Refrain from lifting heavy weights or placing large amounts of stress on your abdomen. Follow up with your Urologist, Valet and Primary Care Physician within the next 2 weeks to properly transition care out of the hospital. If you are unable to make urine, have bleeding into the urine that will not stop, bleeding with bowel movements, or dark tarry stools return to the hospital for evaluation. Pending Studies at Discharge: No Stand-Alone Forms: My [facility] Medications and DC Order Prescriptions: New aspirin [Aspirin Low Dose] 81 mg tablet,delayed release (DR/EC) 81 mg PO DAILY Qty: 30 RF: 0 amoxicillin-pot clavulanate [Augmentin] 875-125 mg tablet 1 tab PO BID Qty: 14 RF: 0 doxycycline monohydrate 100 mg capsule 100 mg PO BID 7 Days Qty: 14 RF: 0 Continued metformin 500 mg Tablet 1,000 mg PO BID RF: 0 atorvastatin 80 mg Tablet 80 mg PO HS RF: 0 levothyroxine 100 mcg Tablet 100 mcg PO QAM RF: 0 ascorbic acid (vitamin C) [Vitamin C] 500 mg Tablet 500 mg PO BID RF: 0 metoprolol succinate 25 mg Capsule,Sprinkle,Er 24hr 25 tab PO BID RF: 0 magnesium 200 mg Tablet 400 mg PO BID RF: 0 pantoprazole 20 mg Tablet,Delayed Release (Dr/Ec) 20 mg PO QAM PRN (Reason: Acid Reflux) RF: 0 Entresto 49-51 mg Tablet 1 tab PO BID RF: 0 olopatadine 0.1 % Drops 1 drp OPHTHALMIC (EYE) BID RF: 0 ipratropium bromide 0.03 % [place],Non-Aerosol 2 spray INTRANASAL TID RF: 0 oxybutynin chloride 5 mg tablet 5 mg PO BID PRN (Reason: bladder spasms) Qty: 60 RF: 0 oxycodone-acetaminophen [Percocet] 7.5-325 mg tablet 1 tab PO TID PRN (Reason: pain) Qty: 20 RF: 0 docusate sodium [Colace] 100 mg capsule 100 mg PO BID Qty: 60 RF: 0 ciclopirox 8 % solution 1 applic topical UD RF: 0 Eliquis 5 mg tablet 5 mg PO BID RF: 0 Discontinued doxycycline monohydrate 100 mg capsule 100 mg PO BID Qty: 60 RF: 0 Discharge Orders: Discharge Order (Routine); Ordered 05/07/19 Ordered By: Jaida Harrington Admission Data Admit Date/Time: 05/04/19 17:21 Attending Provider: Kuldeep Ontiveros Admit Provider: Bairon Sarmiento Primary Care Provider: Germain Hatfield Other Providers: Jaida Harrington ; Bairon Sarmiento ; Ruiz Luu I. Other Interventions: Discharge Summary Assessment (RN) Last Done: 05/07/19 11:10 DC Date/Time DO NOT enter until pt leaves facility: 05/07/19 13:42 Supervising Physician Co-Signing Physician Notes I personally examined the patient and verified all bledsoe points of history and exam, discussed case, and agree with decision making with Dr Harrington. feeling good up to going home Vitals noted, in general he is awake and alert no distress. HEENT normal cephalic atraumatic mucous membranes moist. Breathing unlabored no accessory muscle use good effort. Skin shows no rashes no pallor or icterus. Urine now appears clear. 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 Hematuriarelated to infection. Has cleared. cautiously resumed aspirin, resuming eliquis Coronary artery diseaseaspirin, asymptomatic Acute blood loss anemiarelated to hematuria. Continue to follow closely, but appears to have cleared. Sara albright to briefly be off of anticoagulation given the risk and benefit of his gross hematuria, but now that hematuria has cleared, resume eliquis Resident Activity Tracking Resident Involvement: Resident Care Provided Care Provided: Adult Hospital Medicine
[2019-05-08] MEDS ORDERED: VANCOMYCIN TROUGH ONE (13:30)
== END 2019-05-07 13:42 | disposition home or self-care (01) | DRG 699 ==
LOC: ED 12:49 → 2E 17:21 → SUATTDRO 17:21 → 2E 18:34 → 2W 05-05 18:50 → 2E 05-05 19:55 → 2N 05-05 21:04
DX: Z87.891 Personal history of nicotine dependence; Z79.84 Long term (current) use of oral hypoglycemic drugs; T83.61XA Infection and inflammatory reaction due to implanted penile prosthesis, initial encounter; I48.2 Chronic atrial fibrillation; Y83.8 Other surgical procedures as the cause of abnormal reaction of the patient, or of later complication, without mention of misadventure at the time of the procedure; E78.5 Hyperlipidemia, unspecified; N39.0 Urinary tract infection, site not specified; Z68.32 Body mass index [BMI] 32.0-32.9, adult; D62 Acute posthemorrhagic anemia; Z95.5 Presence of coronary angioplasty implant and graft; E66.9 Obesity, unspecified; S37.39XA Other injury of urethra, initial encounter; Y83.1 Surgical operation with implant of artificial internal device as the cause of abnormal reaction of the patient, or of later complication, without mention of misadventure at the time of the procedure; T45.515A Adverse effect of anticoagulants, initial encounter; Z79.01 Long term (current) use of anticoagulants; I25.10 Atherosclerotic heart disease of native coronary artery without angina pectoris; N48.22 Cellulitis of corpus cavernosum and penis; Z79.899 Other long term (current) drug therapy